=== PATIENT | male | born 1940 | race Caucasian/White ===

== ENCOUNTER → 2019-01-23 09:29 | Outpatient (CLI) | payer SELFPAY ==
[2019-01-23 10:02] LABS: International Normalized Ratio 2.5; Prothrombin Time (Protime)PT. 26.8 SECONDS (11.7-14.9)
== END ==
PROVIDERS: Family Provider Family Medicine; PCP Family Medicine; Referring Provider Student in an Organized Health Care Education/Training Program; Visit Provider Student in an Organized Health Care Education/Training Program
DX: Z98.890 Other specified postprocedural states (principal); Z86.79 Personal history of other diseases of the circulatory system
CPT/HCPCS: 85610

== ENCOUNTER 2020-07-17 09:46 | Emergency (ER) | payer SELFPAY ==
[2020-07-17] VITALS (7 sets, daily range): BP systolic 115–137; BP diastolic 63–78; PULSE 70–74; RESP 17–22; TEMP 36.8–37.1; O2SAT 90–94; BMI 26.8
--- NOTE | 2020-07-17 09:54 | EKG12_ITS ---
Test Reason : LOW OX Blood Pressure : / mmHG Vent. Rate : 071 BPM Atrial Rate : 060 BPM P-R Int : 136 ms QRS Dur : 156 ms QT Int : 464 ms P-R-T Axes : 000 267 064 degrees QTc Int : 504 ms Suspect arm lead reversal, interpretation assumes no reversal Atrial-paced rhythm Right bundle branch block Cannot rule out Anterior infarct , age undetermined Abnormal ECG Confirmed by INES ONOFRE, NICK ([id number]), news editor HERB THOMPSON ([id number]) on 07/22/2020 8:44:47 AM Referred By: VISHAL Confirmed By:NICK CHACON MD
--- NOTE | 2020-07-17 09:56 | ED.DCSUM_ITS ---
History of Present Illness Informant: Patient, EMS Onset: Weeks - 1 week Activity at onset: Exertion, Light Activity, Rest Timing: Continuous Quality: Dyspnea on exertion Current Severity: Severe Maximum Severity: Severe Worsened by: Coughing, Exertion Relieved by: Oxygen, Rest Associated Symptoms: Cough, Green sputum. Negative for: Bloody Sputum, Chills, Clear sputum, Ear pain, Fever, Post-nasal drainage, Rhinorrhea, Sore throat, Sweats, White sputum, Yellow sputum Chest Pain: None Narrative: 80-year-old male history of COPD and CHF currently on oxygen at home presents to the emergency department with worsening shortness of breath over the last week. He was actually sent in today from his pulmonology appointment for being hypoxic around 85% on his normal 2 L of oxygen. He states that he has been increasing his oxygen at home up to 3 L but is still feeling short of breath. He has a productive cough with green and yellow sputum with dyspnea on exertion and wheezing. No fevers or hemoptysis. No chest pain. No leg pain or swelling. No nausea vomiting lightheadedness or diaphoresis. No sick contacts. He is currently on Coumadin. He does not remember when his last INR was checked. PE Risk Factors: Negative for: Cancer, OCP + Smoking + > 35, Recent immobilization, Recent surgery, Recent travel Prior similar symptoms: Yes Recent Illness/Hospitalization: No <Warren Ram - Last Filed: 07/17/20 13:14> <Zurdo Reid - Last Filed: 07/17/20 14:11> Chief Complaint: Shortness of Breath Past Medical History Prior records reviewed: Yes Past Medical History: - - COPD and CHF Smoking Status: Former smoker Alcohol: None Drugs: None <Warren Ram - Last Filed: 07/17/20 13:14> <Zurdo Reid - Last Filed: 07/17/20 14:11> - Allergies and Home Meds Allergies/Adverse Reactions: Allergies amiodarone Allergy (Verified 07/17/20 09:48) PT UNSURE OF REACTION metoprolol Allergy (Verified 07/17/20 09:48) PT UNSURE OF REACTION milk Allergy (Verified 07/17/20 09:48) PT UNSURE OF REACTION sotalol Allergy (Verified 07/17/20 09:48) PT UNSURE OF REACTION Sulfa (Sulfonamide Antibiotics) Allergy (Verified 07/17/20 09:48) PT UNSURE OF REACTION Primary Care Physician: Daniel Chester DO [Primary Care Provider] - Review of Systems All systems negative except as indicated General: Denies: Chills, Fever, Sweats Eyes: Denies: Visual changes - bilaterally, Diplopia ENT: Denies: Rhinorrhea, Sore throat Cardiovascular: Denies: Chest pain, Palpitations, Heart racing Respiratory: Reports: Dyspnea, Cough, Sputum, Dyspnea on exertion. Denies: Orthopnea, Paroxysmal nocturnal dyspnea Gastrointestinal: Denies: Abdominal pain, Nausea, Vomiting, Diarrhea, Melena, Hematochezia Genitourinary: Denies: Dysuria, Hematuria, Frequency Musculoskeletal: Denies: Back pain, Extremity Pain Skin: Denies: Rash, Wounds Neurological: Denies: Headache, Weakness, Numbness <Warren Ram - Last Filed: 07/17/20 13:14> Physical Exam Vital Signs/Narrative: Vital Signs Temp Pulse Resp BP Pulse Ox 07/17/20 09:54 98.2 F 74 22 H 127/63 H 93 07/17/20 09:49 98.2 F 74 22 H 127/63 H 93 Inital Vital Signs reviewed: Yes General: Well nourished, Well developed, No Acute Distress Head: Normocephalic, Atraumatic Eyes: Perrl, EOMI ENT: Moist mucous membranes, No rhinorrhea Neck: Supple, Nontender Cardiovascular: Regular rate, Regular rhythm, No murmurs Respiratory: Chest nontender, Wheezing, Diminished, Decreased Air Movement, - - Under distress with having difficulty speaking in full sentences as well as use of accessory muscles for breathing Abdomen: Soft, Nontender, Nondistended, Normal bowel sounds Back: Nontender, Normal Inspection Extremities: Nontender, No edema. Negative for: Tenderness, Edema, Calf Tenderness Skin: Normal color, No rash Neurological: Alert, Oriented x3, Cranial nerves II-XII grossly intact, Normal Strength, Normal Sensation Psychological: Normal affect, Normal Mood <Warren Ram - Last Filed: 07/17/20 13:14> Vital Signs/Narrative: Vital Signs Temp Pulse Resp BP Pulse Ox 07/17/20 13:00 98.7 F 70 17 115/68 90 07/17/20 12:10 70 20 H 137/78 H 92 07/17/20 12:00 98.6 F 70 20 H 137/78 H 92 07/17/20 11:54 98.6 F 70 18 137/78 H 92 07/17/20 11:00 70 17 94 <Zurdo Reid - Last Filed: 07/17/20 14:11> Diagnostic/Tx/Re-eval Chest X-Ray - ED: 1 View, Read by ED Physician, Read by Radiologist, No Acute Disease - Rhythm Strip Rhythm Strip: Sinus Rhythm Rate: 90 Ectopy: None - EKG Initial EKG Interpretation: No Acute Injury Pattern, Paced Prior: Unchanged Treatment - Dyspnea: Oxygen, Albuterol, Atrovent, Steroid Repeat Evaluation: No change With Ambulation: Desaturation - Medical Decision Making Patient presents hypoxic on his normal 2 L of home oxygen we increase him to 5 L to 94%. He was given a dose of IV Solu-Medrol and aerosols. His EKG showed a paced rhythm unchanged from his previous no acute changes are noted. Patient's laboratory work-up was unremarkable. His blood gas was essentially unremarkable as well. He does not appear to be retaining CO2. His chest x-ray is unremarkable. Repeat exam the patient is still requiring 5 L which is increased from his baseline of 2 L. At this time we feel this is due to a COPD exacerbation. Discussed with patient he requires admission. He requested that we transfer him to [facility] where his children's ministries director follows. I spoke with the transfer line who agreed to admit. Accepting hospitalist was Dr. Nation <Warren Ram - Last Filed: 07/17/20 13:14> - Medical Decision Making I supervised the STEPHANY and have performed my own pertinent history and physical. Results and treatment plan were discussed. HPI: Patient reports that he has increased shortness of breath. Does have a productive cough. He denies any fever or chills. No chest pain. He sent by his children's ministries director office. They report that he stopped his Lasix and is drinking something that he says is a diuretic. PE: Vitals: Stable. Afebrile. General: Well-nourished and well-developed. Head: Normocephalic atraumatic. Neck: Supple, no lymphadenopathy. No JVD. Nontender. Cardiovascular: Regular rate and rhythm. No murmurs. Respiratory: Moderate respiratory distress. Mild wheezing bilaterally.. Abdominal: Soft, nontender, nondistended, normal bowel sounds. No guarding, rebound, or peritoneal signs. Back: Nontender. Extremities: Nontender, no edema. Skin: Normal color, no rash. Neurologic: Alert and oriented ?3. Cranial nerves II through XII are intact. Normal strength and sensation. Psych: Normal affect. Emergency Department course: Patient was given aerosols. He is still requiring more oxygen and needs to be admitted. He would like to be transferred to [facility] where his children's ministries director can follow him. Treatment Plan: Patient will be transferred in improved condition. This note was generated with [employer] dictation software. It may contain incorrect words, spelling, and punctuation that were not noted in review of the chart prior to signing. <Zurdo Reid - Last Filed: 07/17/20 14:11> ED Disposition <Warren Ram - Last Filed: 07/17/20 13:14> <Zurdo Reid - Last Filed: 07/17/20 14:11> - Plan for ED Patient: Disposition: Acute Care Hospital - Other Diagnosis: COPD with hypoxia, History of CHF (congestive heart failure) Referrals: Daniel Chester DO [Primary Care Provider] -
[2020-07-17] MEDS: MethylPREDNISolone 125 MG/2 ML Vial IV (10:11)
[2020-07-17] MEDS: Albuterol 2.5 MG/3 ML VIAL.NEB. INHALATION ×3 (10:15→10:45)
[2020-07-17] MEDS: Ipratropium/Albuterol Sulfate 3 ML AMPUL.NEB INHALATION (10:15)
--- NOTE | 2020-07-17 10:20 | RAD_ITS ---
STUDY: X-RAY CHEST REASON FOR EXAM: Male, 80 years old. Sob, low oxygen level, history of COPD TECHNIQUE: Single AP portable view of the chest. COMPARISON: None. FINDINGS: EKG electrodes are seen. Hyperinflation. Decreased bronchovascular markings in the upper lobes suggestive of emphysematous change with bullous formation. Increased markings in the lower lobes with areas of confluence in the right lower lobe suggests lobar scarring. Blunting of both cost phrenic angles. Prior aortic valve replacement. A left-sided dual-chamber pacemaker is seen. Normal mediastinum and hermann. Normal visualized pulmonary arteries. There is atherosclerotic calcification of the aortic arch with tortuosity. Normal visualized thoracic spine. Normal visualized ribs, clavicles, and shoulders. There is no demonstrated abnormality of the visualized soft tissue structures of the upper abdomen. RAD/Chest 1 View (Portable) IMPRESSION: Hyperinflation and changes compatible with emphysema. Findings suggestive of scarring at the lung bases with blunting of both costophrenic angles. Electronically Signed: Leo Da Silva, at 10:42 EDT , Service support ,
[2020-07-17 10:28] LABS: Absolute Lymphocyte Count 0.49 X10^3/uL (0.83-4.51); Absolute Neutrophil Count 1.7 X10^3/uL (2.0-7.7); Basophil# 0.01 X10^3/uL; Basophil% 0.4 % (0-1); Eosinophil# 0.02 X10^3/uL; Eosinophils% 0.8 % (0-5); Hematocrit 38.3 % (40-54); Hemoglobin 12.7 g/dL (13.0-16.5); Lymphocyte # 0.49 X10^3/ul (4.0); Lymphocyte % 19.6 % (19-41); Mean Corp Hgb Conc 33.2 g/dL (32-36); Mean Corpuscular Volume 96.5 fL (80-94); Mean Platelet Vol. 10.6 fl (6.2-12.0); Monocyte# 0.27 X10^3/uL; Monocyte% 10.8 % (0-10); NRBC Flagged by Analyzer 0 % (0-5); Neutrophil # 1.69 X10^3/uL (2.7-7.7); Neutrophil % 67.6 % (47-70); POSITIVE DIFFERENTIAL YES; Platelet Count 112 K/mm3 (150-450); RBC Distribution Width CV 13.8 % (11.6-14.6); RBC Distribution Width SD 49.1 fl (35.1-43.9); Red Blood Count 3.97 M/mm3 (4.6-6.2); White Blood Count 2.5 K/mm3 (4.4-11.0)
[2020-07-17 10:29] LABS: Differential Indicated SCAN CRITERIA MET
[2020-07-17 10:45] LABS: Anion Gap 5 (5-15); BUN 39 mg/dL (7-18); BUN/Creat Ratio 34.2 RATIO (10-20); Calcium,Total 8.6 mg/dL (8.5-10.1); Chloride 103 mmol/L (98-107); Creatinine, Serum 1.14 mg/dL (0.70-1.30); EST Glomerular Filtration Rate 65 mL/min (>60); Est Glom Filt Rate - Afr Amer 79 mL/min (>60); Estimated Creatinine Clearance 53.21 ml/min; Glucose 98 mg/dL (74-106); Sodium Level 134 mmol/L (136-145)
[2020-07-17 10:46] LABS: BNP,B-Type NATRIURETIC PEPTIDE 511.1 pg/mL (0-100); International Normalized Ratio 2.9; Prothrombin Time (Protime)PT. 30.1 SECONDS (11.7-14.9)
[2020-07-17 11:08] LABS: Differential Comment D
[2020-07-17 11:10] LABS: Base Excess -3 mmol/L (-2 to +2); Bicarbonate 22.4 mmol/L (22-26); Blood Gas Specimen Type ART; PO2 79 mmHG (75-100); SITE L Radial; SO2 96 % (95-99); Total Carbon Dioxide 24 mmol/L; pCO2 36.9 mmHg (35-45); pH 7.39 (7.35-7.45)
[2020-07-20 14:08] LABS: Pathologist Review Reviewed
== END 2020-07-17 14:07 | disposition short-term general hospital (02) ==
PROVIDERS: Emergency Provider Physician Assistant Medical; PCP Student in an Organized Health Care Education/Training Program
DX: J44.9 Chronic obstructive pulmonary disease, unspecified (principal); R09.02 Hypoxemia; I50.9 Heart failure, unspecified; Z99.81 Dependence on supplemental oxygen; Z79.01 Long term (current) use of anticoagulants; Z87.891 Personal history of nicotine dependence
CPT/HCPCS: 36600; 71045; 80048; 82803; 83880; 84484; 85025; 85610; 93005; 94640; 96374; 99285; A4216

== ENCOUNTER 2020-07-31 10:12 | Inpatient (IN) | payer MEDICARE, SELFPAY ==
[2020-07-17 09:49] VITALS: BMI 26.8
[2020-07-31] VITALS (16 sets, daily range): BP systolic 84–114; BP diastolic 42–68; PULSE 62–75; RESP 11–24; TEMP 36.6–37.2; O2SAT 91–97; BMI 25.4; BMI 24.9; BMI 25.0
--- NOTE | 2020-07-31 10:20 | NURSING ---
[id number] STROKE ALERT CALLED
--- NOTE | 2020-07-31 10:21 | CT_ITS ---
STUDY: CT BRAIN WITHOUT CONTRAST REASON FOR EXAM: Male, 80 years old. stroke. RADIATION DOSAGE (If Supplied By Facility): CTDIvol = ( 44.99 ) mGy, DLP = ( 846.73 ) mGycm TECHNIQUE: Transaxial CT imaging of the brain was performed without administration of intravenous contrast material. Individualized dose optimization techniques were used for this CT. COMPARISON: No relevant priors. FINDINGS: Normal soft tissue structures. Normal calvarium. There is mild cerebral atrophy with widening of the extra-axial spaces and ventricular dilatation. There are areas of decreased attenuation within the white matter tracts of the supratentorial brain, consistent with microvascular disease changes. Normal basal ganglia and thalami. Normal brainstem. Normal cerebellum. There is no intracranial hemorrhage. There are no findings of an acute ischemic infarction. Normal visualized paranasal sinuses. CT/Brain/Head without Contrast IMPRESSION: No acute intracranial hemorrhage. N.B. : The above information has been verbally conveyed by Radha Jacobs to Edmar Reid MD, on 07/31/2020 10:34:07 (ET). Electronically Signed: Radha Jacobs, at 10:34 EDT Tel , Service support ,
--- NOTE | 2020-07-31 10:21 | EKG12_ITS ---
Test Reason : STROKE ALERT Blood Pressure : / mmHG Vent. Rate : 072 BPM Atrial Rate : 072 BPM P-R Int : 134 ms QRS Dur : 160 ms QT Int : 464 ms P-R-T Axes : 000 257 057 degrees QTc Int : 508 ms Suspect arm lead reversal, interpretation assumes no reversal Atrial-paced rhythm Right bundle branch block Possible Anterolateral infarct , age undetermined Abnormal ECG Confirmed by NITIN ONOFRE, LAWRENCE ([id number]), proposal editor HERB THOMPSON ([id number]) on 08/05/2020 11:07:17 AM Referred By: JEREMIAH Confirmed By:AVEL TAVERAS MD
--- NOTE | 2020-07-31 10:22 | CT_ITS ---
STUDY: CTA HEAD AND NECK WITH CONTRAST REASON FOR EXAM: Male, 80 years old. STROKE RADIATION DOSAGE (If Supplied By Facility): CTDIvol = ( 37.87 ) mGy, DLP = ( 724.26 ) mGycm TECHNIQUE: CT angiography was performed with a multi-detector CT scanner. Data acquisition was obtained from the skull base through the vertex following intravenous administration of IV 100mL [id number]-[id number]. MIP images were reconstructed from the axial data set. Post-processing of the angiographic images was performed, with multiplanar reformation and 3D reconstruction. Individualized dose optimization techniques were used for this CT. COMPARISON: No relevant priors. FINDINGS: Normal bilateral petrous carotid arteries. Normal right cavernous carotid artery with a normal supraclinoid bifurcation. Normal left cavernous carotid artery with a normal supraclinoid bifurcation. Normal right A1 segments of the anterior cerebral artery. Normal left A1 segments of the anterior cerebral artery. Normal intact anterior communicating artery (ACOM). Normal bilateral A2 segments of the anterior cerebral arteries. Normal right M1 and M2 segments of the middle cerebral arteries, with a normal M1 bifurcation. Normal left M1 and M2 segments of the middle cerebral arteries, with a normal M1 bifurcation. Normal right posterior communicating artery (PCOM). Normal left posterior communicating artery (PCOM). Normal bilateral vertebral arteries. Normal basilar artery with a normal basilar bifurcation. The visualized bilateral superior cerebellar (SCA) arteries are normal. Normal bilateral P1, P2 and visualized P3 segments of the posterior cerebral arteries. There is no demonstrated aneurysm of the [place] of [place]. There is no demonstrated abnormality of the visualized brain. AORTIC ARCH: Normal visualized aortic arch. Normal origins of the brachiocephalic, left common carotid, and left subclavian arteries. RIGHT CAROTID ARTERIES: Normal right common carotid artery (CCA). There is mild atherosclerotic plaque formation with minimal narrowing of the right carotid bulb. Normal origin of the right internal carotid (ICA) artery without a hemodynamically significant stenosis. Normal visualized cervical portion of the right internal carotid artery. Normal origin of the right external carotid artery (ECA). LEFT CAROTID ARTERIES: Normal left common carotid artery (CCA). There is mild atherosclerotic plaque formation with minimal narrowing of the left carotid bulb. Normal origin of the left internal carotid (ICA) artery without a hemodynamically significant stenosis. Normal visualized cervical portion of the left internal carotid artery. Normal origin of the left external carotid artery (ECA). VERTEBRAL ARTERIES: Normal bilateral vertebral arteries. CT/CTA Head AND Neck W/ Contrast IMPRESSION: No significant stenosis of the carotid or vertebral arteries. Electronically Signed: Radha Jacobs, at 11:04 EDT Tel , Service support ,
[2020-07-31 10:34] LABS: Absolute Lymphocyte Count 0.77 X10^3/uL (0.83-4.51); Absolute Neutrophil Count 14.7 X10^3/uL (2.0-7.7); Basophil# 0.03 X10^3/uL; Basophil% 0.2 % (0-1); Eosinophil# 0.09 X10^3/uL; Eosinophils% 0.5 % (0-5); Hemoglobin 13.8 g/dL (13.0-16.5); Lymphocyte # 0.77 X10^3/ul (4.0); Lymphocyte % 4.3 % (19-41); Mean Corp Hgb Conc 32.9 g/dL (32-36); Mean Corpuscular Hgb 31.6 pg (27.0-32.0); Mean Corpuscular Volume 96.1 fL (80-94); Mean Platelet Vol. 10.5 fl (6.2-12.0); Monocyte# 1.39 X10^3/uL; Monocyte% 7.8 % (0-10); NRBC Flagged by Analyzer 0 % (0-5); Neutrophil # 14.74 X10^3/uL (2.7-7.7); Neutrophil % 82.6 % (47-70); Platelet Count 158 K/mm3 (150-450); RBC Distribution Width CV 14.1 % (11.6-14.6); RBC Distribution Width SD 49.7 fl (35.1-43.9); Red Blood Count 4.37 M/mm3 (4.6-6.2); White Blood Count 17.8 K/mm3 (4.4-11.0)
--- NOTE | 2020-07-31 10:36 | CM.ED ---
Social Work Responding to stroke alert. Patient spouse, Tiffani present. Active support and listening provided. This social work assistant able to assist with providing Tiffani with glass of water and crackers. Tiffani reports to be understanding current process and plan of care for patient currently. Will continue to follow as needed. Adriana Brannon MSW, SANJEEV-S
[2020-07-31 10:43] LABS: Partial Thromboplast Time 26.4 Seconds (24.1-36.2)
[2020-07-31 10:51] LABS: International Normalized Ratio 1.1; Prothrombin Time (Protime)PT. 13.7 SECONDS (11.7-14.9)
[2020-07-31 10:58] LABS: Anion Gap 6 (5-15); BUN 82 mg/dL (7-18); BUN/Creat Ratio 56.2 RATIO (10-20); Calcium,Total 9.1 mg/dL (8.5-10.1); Chloride 106 mmol/L (98-107); Creatinine, Serum 1.46 mg/dL (0.70-1.30); EST Glomerular Filtration Rate 49 mL/min (>60); Est Glom Filt Rate - Afr Amer 59 mL/min (>60); Estimated Creatinine Clearance 42.82 ml/min; Glucose 79 mg/dL (74-106); Potassium 4.4 mmol/L (3.5-5.1); Sodium Level 138 mmol/L (136-145)
--- NOTE | 2020-07-31 11:00 | RAD_ITS ---
STUDY: X-RAY CHEST REASON FOR EXAM: Male, 80 years old. stroke -- alt loc TECHNIQUE: Single AP portable view of the chest. COMPARISON: None. FINDINGS: Pacemaker is seen on the left side There is hyperinflation of the lungs consistent with chronic obstructive lung disease (COPD). There is emphysema in the upper lobes. There is compressive atelectasis in the lung bases. There is no demonstrated pleural abnormality. Normal size heart. Normal mediastinum and hermann. Normal visualized pulmonary arteries. Normal visualized aortic arch and descending thoracic aorta. Normal visualized thoracic spine. Normal visualized ribs, clavicles, and shoulders. There is no demonstrated abnormality of the visualized soft tissue structures of the upper abdomen. RAD/Chest 1 View IMPRESSION: COPD and emphysema. There has been no significant change since the previous study. Electronically Signed: Radha Jacobs, at 11:35 EDT Tel , Service support ,
--- NOTE | 2020-07-31 11:17 | CM.ED ---
Social Work This criminal justice social worker checking back in with patient and patient significant other. Patient/significant other voicing to both understand patient out comes and current course of action in the Emergency Room. No further questions. MICKI Allen, SANJEEV-S
--- NOTE | 2020-07-31 11:30 | HP.PCM_ITS ---
Problem List (1) Expressive aphasia Status: Acute (2) Pacemaker Status: Chronic (3) Afib Status: Chronic Qualifiers: Atrial fibrillation type: unspecified chronic Qualified Code(s): I48.20 - Chronic atrial fibrillation, unspecified (4) Essential (primary) hypertension Status: Chronic (5) COPD (chronic obstructive pulmonary disease) Status: Chronic (6) Chronic respiratory failure with hypoxia, on home O2 therapy Status: Chronic History of Present Illness Date of Admission: 07/31/20 Chief Complaint: Difficulty with expression The patient is a 80 year old M with past medical history section for paroxysmal A. fib, essential hypertension, pacemaker placement, COPD on home baseline home O2 who was brought to the emergency department with confusion. 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 A suspicion of acute CVA was entertained patient was brought to the emergency department as a result. His NIH score was 1. Consult was placed to [facility] neurology. Patient was offered TPA however he declined. Initial head CT was negative for acute ischemic bleed. Of note patient was on Coumadin which had been held in view of patient being placed on antibiotic therapy due to concerns for elevated INR. Patient INR on admission was 1.1. Patient was admitted to a monitored [facility] floor for subsequent management. Past Medical History Past Medical History (Chronic Problems): Chronic Problems Pacemaker (Chronic) Afib (Chronic) Essential (primary) hypertension (Chronic) COPD (chronic obstructive pulmonary disease) (Chronic) Chronic respiratory failure with hypoxia, on home O2 therapy (Chronic) Allergies amiodarone Allergy (Verified 07/31/20 10:16) PT UNSURE OF REACTION metoprolol Allergy (Verified 07/31/20 10:16) PT UNSURE OF REACTION milk Allergy (Verified 07/31/20 10:16) PT UNSURE OF REACTION sotalol Allergy (Verified 07/31/20 10:16) PT UNSURE OF REACTION Sulfa (Sulfonamide Antibiotics) Allergy (Verified 07/31/20 10:16) PT UNSURE OF REACTION Home Medications: Ambulatory Orders Medication Instructions Recorded Amlodipine [Norvasc] 5 mg PO DAILY 07/17/20 Aspirin [Aspirin, Baby] 81 mg PO DAILY 07/17/20 Budesonide/Formoterol Fumarate 2 puff IH BID 07/17/20 [Symbicort 160-4.5 Mcg Inhaler] Carvedilol 25 mg PO BID 07/17/20 Furosemide [Lasix] 40 mg PO DAILY 07/17/20 Ipratropium/Albuterol Respimat 2 puff INHALATION 4X/DAY 07/17/20 [Combivent Respimat Inhal [place]] Lisinopril 20 mg PO BID 07/17/20 Prednisone 5 mg PO DAILY 07/17/20 Warfarin Sodium [Coumadin] 5 mg PO SUTUTHSA 07/17/20 Warfarin [Coumadin (PBKC)] 4 mg PO MOWEFR 07/17/20 Smoking Status: Former smoker - *Family History Maternal History Items: Unknown Review of Systems Constitutional: Denies: Anorexia, Chills, Fever, Night Sweats, Weight Change HEENT: Denies: Head Aches, Sinus Drainage Cardiovascular: Denies: Chest Pain, Orthopnea, Palpitations Respiratory: Reports: Cough, Shortness of Breath, Shortness of breath upon exertion Gastrointestinal: Denies: Abdominal Pain, Hematemesis, Hematochezia, Nausea, Melena, Vomiting Genitourinary: Denies: Dysuria, Frequency, Hematuria, Urgency Musculoskeletal: Denies: Joint Pain, Joint Tenderness Skin: Denies: Rash Neurological: Reports: Change in Speech, Confusion. Denies: Focal weakness, Nu mbness Psychiatric: Denies: Homicidal Ideations, Suicidal Ideations Hematologic/ Lymphatic: Denies: Anemia VTE Information - Inpt Only VTE Present on Admission: No VTE Mechan Device Prophylaxis: None VTE Pharm Prophylaxis ordered?: Yes Patient Problems: Active and Suspected Problems Expressive aphasia (Acute) Objective: GENERAL: cooperative HEENT: Atraumatic; EYES; Anicteric, Normal Conjunctiva NECK; supple, normal thyroid, RESPIRATORY: Diminished to auscultation CARDIOVASCULAR: Regular S1 S2, GI: soft, normoactive bowel sounds, : No Renal angle tenderness; EXTREMITIES: No edema, no clubbing, MUSCULOSKELETAL: no muscle waisting NEURO: Awake; no lateralizing signs. SKIN: No Rash PSYCH; Flat affect - Physical Exam Vitals/I&O's: Vital Signs Temp Pulse Resp BP Pulse Ox 98 F 71 24 H 89/67 L 94 07/31/20 10:13 07/31/20 10:21 07/31/20 10:21 07/31/20 10:21 07/31/20 10:32 Oxygen Flow Rate (L/min) 5 Oxygen Delivery Method Nasal Cannula Weight: 85.3 kg Body Mass Index (BMI) 25.4 Finger Stick Blood Glucose 98 Laboratory Results 07/31/20 10:15: WBC 17.8 H, RBC 4.37 L, Hgb 13.8, Hct 42.0, MCV 96.1 H, MCH 31.6, MCHC 32.9, RDW Std Deviation 49.7 H, RDW Coeff of Tal 14.1, Plt Count 158, MPV 10.5, Immature Gran % (Auto) 4.600 H, Neut % (Auto) 82.6 H, Lymph % (Auto) 4.3 L, [place] % (Auto) 7.8, Eos % (Auto) 0.5, Baso % (Auto) 0.2, Absolute Neuts (auto) 14.7 H, Absolute Lymphs (auto) 0.77 L, Nucleated RBC % 0 07/31/20 10:15: PT 13.7, INR 1.1, APTT 26.4 07/31/20 10:15: Sodium 138, Potassium 4.4, Chloride 106, Carbon Dioxide 26.0, Anion Gap 6, BUN 82 H, Creatinine 1.46 H, Estim Creat Clear Calc 42.82, Est GFR (MDRD) Af Amer 59 L, Est GFR (MDRD) Non-Af 49 L, BUN/Creatinine Ratio 56.2 H, Glucose 79, Calcium 9.1, Troponin I < 0.015 Current Medications Acetaminophen (Tylenol) 650 mg PO .X1 PRN PRN Reason: Temp > 99.6 F Diphenhydramine HCl (Benadryl) 50 mg IV .X1 PRN PRN Reason: Allergic Reaction Stop: 08/02/20 10:23 Sodium Chloride () 1,000 mls @ 100 mls/hr IV .Q10H ONE Stop: 07/31/20 20:20 Sodium Chloride () 1,000 mls @ 100 mls/hr IV .Q10H STEPHIE Famotidine 20 mg/ Sodium (Chloride) 10 mls @ 300 mls/hr IV .X1 PRN PRN Reason: Allergic Reaction Stop: 08/02/20 10:23 Nicardipine/Dextrose (Cardene-Dex 20 Mg/200 Ml Soln) 20 mg in 200 mls @ 50 mls/hr IV .Q4H PRN; Protocol PRN Reason: See Instructions Labetalol HCl (Trandate) 20 mg IV X1 PRN PRN Reason: BLOOD PRESSURE Labetalol HCl (Trandate) 20 mg IV X1 PRN; Protocol PRN Reason: BLOOD PRESSURE Methylprednisolone (Solu-Medrol) 125 mg IV .X1 PRN PRN Reason: Allergic Reaction Stop: 08/02/20 10:23 Assessment/Plan All Active Problems Expressive aphasia (Acute) Patient is an 80-year-old gentleman with history of paroxysmal A. fib presenting with expressive aphasia 1. Suspected CVA/TIA -Patient is an 80-year-old gentleman with significant risk factors for stroke including paroxysmal A. fib, hypertension who presents with spells of aphasia. Head CT obtained on admission was negative for acute CVA. Admitted to monitored bed for continuous telemetry, every 4 neurochecks and subsequent evaluation included a 2D echo. Had CTA obtained on admission did not show any evidence of large vessel occlusion. Patient is already on antiplatelet therapy did continue and added statin therapy 2. Paroxysmal A. fib ?With subtherapeutic INR. Patient was on Coumadin which was apparently held following patient being placed on antibiotics. Coumadin resumed with daily monitoring of INR. 3. Chronic diarrhea . Patient was apparently taking 6 tablets of Imodium on a daily basis per family. Given patient recent antibiotic use and his elevated WBC count stool for C. difficile was sent 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 Hypertension - Blood pressure controlled, home medications continued with dose adjustment as needed 6. Chronic hypoxic respiratory failure ?Secondary to COPD patient is on baseline home O2. Also did continue patient home regimen 7. Renal failure ?Acute versus chronic ?Patient baseline unknown on IV fluids with subsequent monitoring of electrolyte 8. DVT prophylaxis ?Lovenox pending normalization of INR to within a therapeutic range Advance planning; did discuss with the patient and family regarding advanced directives as well as CODE STATUS. Did explain the various scenarios involved ( FULL CODE, DNR CCA, DNR CCA with no intubation, and DNR CC and what each meant) patient full code with CPR and intubation if warranted. Order was placed. Time spent on discussion 18 minutes. OBSV E&M: [id number] Initial observation care L3 Procedures: [id number] Advncd Care Plan 30 Min
--- NOTE | 2020-07-31 11:36 | NURSING ---
PCU STROKE KITTOE
[2020-07-31] MEDS: 0.9% Normal Saline 1,000 ML 100 ML IV (11:51)
--- NOTE | 2020-07-31 12:34 | ED.VISSUMM ---
- ER Visit Summary Date of Service: 07/31/20 Chief Complaint: Confusion History of Present Illness: The patient is a [address] Chester. He has a history of chronic respiratory failure and on 5 L of home O2 at baseline. 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 He had abrupt onset of an expressive aphasia at 830 this morning. Patient denies any numbness or weakness. He denies any vertigo. He denies any change in his vision. Patient is typically on Coumadin. However, this was held a week ago as he was placed on an antibiotic and steroids for a COPD exacerbation. Patient reports that he had a nosebleed 2 days ago that was not bad. Review of systems: General: No fever, chills, cold sweats. Cardiovascular: No chest pain, palpitations. Respiratory: No cough, shortness of breath, dyspnea on exertion. Gastrointestinal: No abdominal pain, nausea, vomiting, diarrhea, melena, or hematochezia. Genitourinary: No dysuria, frequency, hematuria. Skin: No rash. Neuro: No headache, numbness, weakness. Physical Examination: Vitals: Stable. Afebrile. General: Well-nourished and well-developed. Head: Normocephalic atraumatic. Neck: Supple, no lymphadenopathy. No JVD. Nontender. Cardiovascular: Regular rate and rhythm. No murmurs. Respiratory: No respiratory distress. Rhonchi at the bases bilaterally. Abdominal: Soft, nontender, nondistended, normal bowel sounds. No guarding, rebound, or peritoneal signs. Back: Nontender. Extremities: Nontender, no edema. Skin: Normal color, no rash. Neurologic: Alert and oriented ?3. Cranial nerves II through XII are intact. Normal strength and sensation. Obvious expressive aphasia with loss of fluency. Psych: Normal affect. Test Results: EKG is AV paced at 72. Troponin is negative. INR is 1.1. PTT is 26.4. Chem-7 shows a BUN of 82 and creatinine 1.46. CBC shows a white count of 17.8 with 83 segs neutrophils and 4 lymphocytes. He has immature granulocytes of 4.6%. Emergency Department Course and Treatment: Patient NIH scale is 0. However, he does clearly have an expressive aphasia. He was seen by the neurologist from [facility] states that he is not a TPA candidate. However, the family wants TPA that this is a possibility and may help with his expressive aphasia. This was discussed with the patient, his , and his daughter. Ultimately he is described himself as a minimalist and does not want TPA. Treatment Plan: Patient was discussed with Dr. you. He will be admitted to the hospital for further evaluation and treatment. Disposition: Admitted in improved condition. Impression: 1. Expressive aphasia. 2. COPD. 3. Chronic respiratory failure. 4. Leukocytosis, uncertain cause. 5. Critical care time 33 minutes. This note was generated with [employer] dictation software. It may contain incorrect words, spelling, and punctuation that were not noted in review of the chart prior to signing ED Disposition - Plan for ED Patient: Disposition: Acute Care Hospital [facility]
--- NOTE | 2020-07-31 12:59 | ECHOD_ITS ---
Reason For Study: TIA/CVA Procedure This was a 2D Doppler, Color Flow transthoracic echocardiogram. Contrast injection was performed. Exam performed portable in patient room. Left Ventricle Normal LV size. The estimated ejection fraction is 55 %. Diastolic function is indeterminate. No regional wall motion abnormalities noted. Right Ventricle Moderately dilated right ventricle. ICD or pacer leads identified within the right ventricle. Moderate global right ventricular systolic dysfunction. Atria The left atrium is severely enlarged. The right atrium is severely enlarged. ICD or pacer leads identified within the right atrium. Patent foramen ovale. No doppler evidence for ASD. Mitral Valve There is no mitral valve stenosis. No mitral valve insufficiency. Tricuspid Valve There is no tricuspid stenosis. Moderate (2+) tricuspid valve insufficiency. Pulmonary artery systolic pressure is 70-75 mmHg. Aortic Valve There is no aortic stenosis. No aortic valve insufficiency. Stable appearing bioprosthetic aortic valve apparatus. Pulmonic Valve There is no pulmonic valvular stenosis. Trivial pulmonic valve insufficiency. Great Vessels Normal aortic root. Pericardium/Pleural No pericardial effusion. Medication Performed a rapid injection of agitated mix of 9 cc saline and 1cc air to assess for atrial septal defect. MMode/2D Measurements & Calculations LVIDd: 3.7 cm IVSd: 1.6 cm LVOT diam: 2.1 cm LVIDs: 2.4 cm LVPWd: 1.5 cm RVDd: 5.2 cm FS: 35.7 % LVOT area: 3.4 cm2 Ao root diam: 3.3 cm LAV(MOD-bp): 120.5 ml LVAd ap4: 24.4 cm2 LA dimension: 5.0 cm LAV(MOD-bp) Indexed: 58.1 ml/m2 EDV(MOD-sp4): 68.9 ml LAV(MOD-sp2): 109.1 ml EDV(sp4-el): 68.1 ml LAV(MOD-sp4): 114.6 ml LVAs ap4: 13.2 cm2 ESV(MOD-sp4): 25.4 ml ESV(sp4-el): 25.4 ml EF(MOD-sp4): 63.2 % EF(sp4-el): 62.7 % SV(MOD-sp4): 43.6 ml SV(sp4-el): 42.7 ml LA A4 area: 30.7 cm2 RA A4 area: 24.0 cm2 Time Measurements MV dec time: 0.16 sec Doppler Measurements & Calculations MV E max josé miguel: 95.1 cm/sec Lat Peak E' José Miguel: 12.7 cm/sec Med Peak E' José Miguel: 7.0 cm/sec MV A max josé miguel: 23.8 cm/sec E/E' lat: 7.5 E/E' med: 13.5 MV E/A: 4.0 MV V2 max: 102.2 cm/sec MV P1/2t max josé miguel: 103.1 cm/sec Ao V2 max: 213.6 cm/sec MV max P.2 mmHg MV P1/2t: 71.5 msec Ao max P.2 mmHg MV V2 mean: 48.4 cm/sec MV dec slope: 422.4 cm/sec2 Ao V2 mean: 142.7 cm/sec MV mean P.2 mmHg MVA(P1/2t): 3.1 cm2 Ao mean P.6 mmHg MV V2 VTI: 24.5 cm Ao V2 VTI: 45.3 cm MVA(VTI): 3.5 cm2 YENI(I,D): 1.9 cm2 YENI(V,D): 2.1 cm2 LV V1 max: 132.9 cm/sec SV(LVOT): 84.7 ml PA V2 max: 93.1 cm/sec LV V1 max P.1 mmHg LV V1 mean P.5 mmHg LV V1 mean: 85.5 cm/sec LV V1 VTI: 25.2 cm PI end-d josé miguel: 150.9 cm/sec TR max josé miguel: 393.4 cm/sec TR max P.9 mmHg Interpretation Summary The estimated ejection fraction is 55 %. Diastolic function is indeterminate. Moderately dilated right ventricle. Moderate global right ventricular systolic dysfunction. The left atrium is severely enlarged. The right atrium is severely enlarged. Moderate (2+) tricuspid valve insufficiency. Pulmonary artery systolic pressure is 70-75 mmHg. Ordering Physician: Alfonso Kang Referring Physician: Daniel Chester Performed By: Braydon Robles RCS
[2020-07-31 14:09] LABS: International Normalized Ratio 1.2; Prothrombin Time (Protime)PT. 14.4 SECONDS (11.7-14.9)
[2020-07-31] MEDS: Albuterol 2.5 MG/3 ML VIAL.NEB. INHALATION ×2 (15:33→21:24)
--- NOTE | 2020-07-31 16:24 | NURSING ---
RN CM Assessment Introduced role of RN CM to patient. Patient is alert, oriented and able to participate in RN CM Assessment. Care providers, pharmacy, and demographics verified. Admit Dx: Suspected CVA Barriers/Issues: Patient only has Mcr A, does not have prescription coverage. Is on the financial sales manager program at [facility], states makes too much to qualify for SATISH. PCP: Daniel Chester Specialists: Hospitalist at [facility], Cardio- [facility], [facility]- Dr Omalley Preferred Pharmacy: [facility] Insurance: Mcr A Rx Benefit: No LNOK: Tiffani Aponte LW/HPOA: None, declines offered information or completion of services on this admission. Informed that he can complete as an outpatient with drug abuse social worker. Living Arrangements: Lives with in a Condo, no steps to enter home. No stairs in home. ADL?s: Independent with ambulation and ADLs Transportation: Both patient and drive. will transport upon DC DME: Home O2 5L continuous-[place], portable O2 tanks-full, Shower chair, Nebulizer HHC: None SNF: None Goal: Would like to go home, has been walking around in room and states does not think will need SNF/rehab. Aware RNCM will continue to follow and available for any emerging needs. SNF list provided. DC PLAN: JOSE MULLEN f/u PT/OT notes. Anticipate Home with JOSE Haddad
[2020-07-31] MEDS: Enoxaparin 40 MG/0.4 ML Syringe SC (16:45)
[2020-07-31] MEDS: 0.9% Normal Saline 1,000 ML 75 ML IV (16:46)
[2020-07-31] MEDS: 0.9% Saline Lock 10 ML Syringe IV (16:46)
--- NOTE | 2020-07-31 18:57 | NURSING ---
1855; patient up from bed, ambulating and up to chair. After initial ambulation, femoral cath site assessed and no s/s of bleeding noted
[2020-07-31] MEDS: Atorvastatin Calcium 40 MG Tablet PO (20:38)
[2020-08-01] VITALS (12 sets, daily range): BP systolic 94–116; BP diastolic 46–62; PULSE 69–80; RESP 16–22; TEMP 36.6–37.1; O2SAT 5–97; BMI 24.9
[2020-08-01] MEDS: 0.9% Normal Saline 1,000 ML 75 ML IV (04:56)
[2020-08-01 06:35] LABS: Absolute Lymphocyte Count 0.47 X10^3/uL (0.83-4.51); Basophil# 0.01 X10^3/uL; Basophil% 0.1 % (0-1); Eosinophil# 0.06 X10^3/uL; Eosinophils% 0.5 % (0-5); Hematocrit 37.3 % (40-54); Hemoglobin 12.1 g/dL (13.0-16.5); Lymphocyte # 0.47 X10^3/ul (4.0); Mean Corp Hgb Conc 32.4 g/dL (32-36); Mean Corpuscular Hgb 31.8 pg (27.0-32.0); Mean Corpuscular Volume 98.2 fL (80-94); Mean Platelet Vol. 10.5 fl (6.2-12.0); Monocyte# 0.98 X10^3/uL; Monocyte% 8.3 % (0-10); NRBC Flagged by Analyzer 0 % (0-5); Neutrophil % 85.2 % (47-70); POSITIVE DIFFERENTIAL YES; Platelet Count 100 K/mm3 (150-450); RBC Distribution Width CV 14.4 % (11.6-14.6); RBC Distribution Width SD 51.7 fl (35.1-43.9); White Blood Count 11.7 K/mm3 (4.4-11.0)
[2020-08-01 06:40] LABS: Differential Indicated SCAN CRITERIA MET
[2020-08-01 06:41] LABS: International Normalized Ratio 1.3; Prothrombin Time (Protime)PT. 15.5 SECONDS (11.7-14.9)
[2020-08-01 07:01] LABS: Anion Gap 5 (5-15); BUN 52 mg/dL (7-18); BUN/Creat Ratio 54.1 RATIO (10-20); Calcium,Total 7.8 mg/dL (8.5-10.1); Chloride 111 mmol/L (98-107); Cholesterol 201 mg/dL (200); Creatinine, Serum 0.96 mg/dL (0.70-1.30); EST Glomerular Filtration Rate 80 mL/min (>60); Est Glom Filt Rate - Afr Amer 96 mL/min (>60); Estimated Creatinine Clearance 65.12 ml/min; Glucose 88 mg/dL (74-106); High Density Lipoprotein 48 mg/dL; Magnesium 2.2 mg/dL (1.6-2.6); Potassium 4.4 mmol/L (3.5-5.1); Sodium Level 140 mmol/L (136-145); Triglycerides 81 mg/dL; Very Low Density Lipoprotein 16 mg/dL (5-40)
[2020-08-01] MEDS: Albuterol 2.5 MG/3 ML VIAL.NEB. INHALATION ×2 (07:40→13:10)
[2020-08-01] MEDS: Enoxaparin 40 MG/0.4 ML Syringe SC (08:40)
[2020-08-01 09:12] LABS: Differential Comment SCANNED
--- NOTE | 2020-08-01 09:21 | CT_ITS ---
STUDY: CT BRAIN WITHOUT CONTRAST REASON FOR EXAM: Male, 80 years old. EXPRESSIVE APHASIA, SUSPECTED STROKE 07/31, HX-A FIB ON COUMADIN -- REPEAT SCAN D/T MOTION RADIATION DOSAGE (If Supplied By Facility): CTDIvol = ( 44.99 ) mGy, DLP = ( 1592.22 ) mGycm TECHNIQUE: Transaxial CT imaging of the brain was performed without administration of intravenous contrast material. Coronal and sagittal reconstructions were performed. Individualized dose optimization techniques were used for this CT. COMPARISON: CT head without contrast 07/31/2020. FINDINGS: Normal soft tissue structures. Normal calvarium. Normal size ventricles and extra-axial spaces for the patient''s age. Hypodensities in the white matter of both cerebral hemispheres are chronic white matter ischemic changes. They are unchanged. Normal basal ganglia and thalami. Normal brainstem. Normal cerebellum. There is no intracranial hemorrhage. There are no findings of an acute ischemic infarction. Normal visualized paranasal sinuses. CT/Brain/Head without Contrast IMPRESSION: 1. No CT evidence of intracranial bleeding, acute ischemic infarct or acute intracranial abnormality. 2. Chronic white matter ischemic changes in both cerebral hemispheres. 3. No interval change when compared to 07/31/2020. Electronically Signed: Bradly Quezada MD at 10:56 EDT , Service support ,
--- NOTE | 2020-08-01 09:28 | PN_ITS ---
Patient Problems: Active and Suspected Problems Expressive aphasia (Acute) Reason for Visit: Expressive aphasia Subjective: Patient is an 80-year-old gentleman with history of paroxysmal A. fib presenting with expressive aphasia Objective: GENERAL: cooperative HEENT: Atraumatic; EYES; Anicteric, Normal Conjunctiva NECK; supple, normal thyroid, RESPIRATORY: Diminished to auscultation CARDIOVASCULAR: Regular S1 S2, GI: soft, normoactive bowel sounds, : No Renal angle tenderness; EXTREMITIES: No edema, no clubbing, MUSCULOSKELETAL: no muscle waisting NEURO: Awake; no lateralizing signs. SKIN: No Rash PSYCH; Flat affect Vitals/I&O's: Vital Signs Temp Pulse Resp BP Pulse Ox 98.1 F 75 20 H 96/48 L 93 08/01/20 08:30 08/01/20 08:30 08/01/20 08:30 08/01/20 08:30 08/01/20 08:30 Oxygen Flow Rate (L/min) 5 Oxygen Delivery Method Nasal Cannula Weight: 83.461 kg Body Mass Index (BMI) 24.9 Finger Stick Blood Glucose 98 Intake and Output for Last 24 Hours 07/30/20 07/31/20 08/01/20 23:59 23:59 23:59 Intake Total 1599.58 / 1819.58 798.75 / 798.75 Balance 1599.58 / 1819.58 798.75 / 798.75 Microbiology Past 72 Hours 08/01/20 05:10 Stool C. difficile DNA Amplification - Final Laboratory Results 07/31/20 10:15: WBC 17.8 H, RBC 4.37 L, Hgb 13.8, Hct 42.0, MCV 96.1 H, MCH 31.6, MCHC 32.9, RDW Std Deviation 49.7 H, RDW Coeff of Tal 14.1, Plt Count 158, MPV 10.5, Immature Gran % (Auto) 4.600 H, Neut % (Auto) 82.6 H, Lymph % (Auto) 4.3 L, Vigo % (Auto) 7.8, Eos % (Auto) 0.5, Baso % (Auto) 0.2, Absolute Neuts (auto) 14.7 H, Absolute Lymphs (auto) 0.77 L, Nucleated RBC % 0 07/31/20 10:15: PT 13.7, INR 1.1, APTT 26.4 07/31/20 10:15: Sodium 138, Potassium 4.4, Chloride 106, Carbon Dioxide 26.0, Anion Gap 6, BUN 82 H, Creatinine 1.46 H, Estim Creat Clear Calc 42.82, Est GFR (MDRD) Af Amer 59 L, Est GFR (MDRD) Non-Af 49 L, BUN/Creatinine Ratio 56.2 H, Glucose 79, Calcium 9.1, Troponin I < 0.015 07/31/20 13:50: PT 14.4, INR 1.2 07/31/20 13:50: Troponin I < 0.015 08/01/20 05:37: WBC 11.7 H, RBC 3.80 L, Hgb 12.1 L, Hct 37.3 L, MCV 98.2 H, MCH 31.8, MCHC 32.4, RDW Std Deviation 51.7 H, RDW Coeff of Tal 14.4, Plt Count 100 L, MPV 10.5, Immature Gran % (Auto) 1.900 H, Neut % (Auto) 85.2 H, Lymph % (Auto) 4.0 L, Vigo % (Auto) 8.3, Eos % (Auto) 0.5, Baso % (Auto) 0.1, Absolute Neuts (auto) 10.0 H, Absolute Lymphs (auto) 0.47 L, Nucleated RBC % 0, Differential Comment SCANNED 08/01/20 05:37: Sodium 140, Potassium 4.4, Chloride 111 H, Carbon Dioxide 24.0, Anion Gap 5, BUN 52 H, Creatinine 0.96, Estim Creat Clear Calc 65.12, Est GFR (MDRD) Af Amer 96, Est GFR (MDRD) Non-Af 80, BUN/Creatinine Ratio 54.1 H, Glucose 88, Calcium 7.8 L, Magnesium 2.2, Triglycerides 81, Cholesterol 201 H, LDL Cholesterol 137 H, VLDL Cholesterol 16, HDL Cholesterol 48 08/01/20 05:37: PT 15.5 H, INR 1.3 Current Medications Acetaminophen (Tylenol) 650 mg PO .X1 PRN PRN Reason: Temp > 99.6 F Acetaminophen (Tylenol) 650 mg PO Q6H PRN PRN PRN Reason: Pain Score 1-10/Temp > 100.7 F Albuterol Sulfate (Ventolin Aerosols) 2.5 mg INHALATION Q6HWA.RT [facility] Last Admin: 08/01/20 07:40 Dose: 2.5 mg Documented by: Aspirin (Aspirin, Baby) 81 mg PO DAILYCM [facility] Last Admin: 08/01/20 08:43 Dose: Not Given Documented by: Atorvastatin Calcium (Lipitor) 40 mg PO QHS [facility] Last Admin: 07/31/20 20:38 Dose: 40 mg Documented by: Carvedilol (Coreg) 6.25 mg PO BID [facility] Last Admin: 08/01/20 09:12 Dose: Not Given Documented by: Diphenhydramine HCl (Benadryl) 50 mg IV .X1 PRN PRN Reason: Allergic Reaction Stop: 08/02/20 10:23 Enoxaparin Sodium (Lovenox) 40 mg SC DAILY [facility] Last Admin: 08/01/20 08:40 Dose: 40 mg Documented by: Famotidine 20 mg/ Sodium (Chloride) 10 mls @ 300 mls/hr IV .X1 PRN PRN Reason: Allergic Reaction Stop: 08/02/20 10:23 Nicardipine/Dextrose (Cardene-Dex 20 Mg/200 Ml Soln) 20 mg in 200 mls @ 50 mls/hr IV .Q4H PRN; Protocol PRN Reason: See Instructions Sodium Chloride () 1,000 mls @ 75 mls/hr IV .[id number] [facility] Stop: 08/02/20 04:58 Last Admin: 08/01/20 04:56 Dose: 75 mls/hr Documented by: Labetalol HCl (Trandate) 20 mg IV X1 PRN PRN Reason: BLOOD PRESSURE Labetalol HCl (Trandate) 20 mg IV X1 PRN; Protocol PRN Reason: BLOOD PRESSURE Labetalol HCl (Trandate) 10 - 20 mg IV Q10M PRN PRN PRN Reason: to Maintain BP Goals Lisinopril (Zestril) 5 mg PO BID [facility] Last Admin: 08/01/20 09:12 Dose: Not Given Documented by: Melatonin (Melatonin) 3 mg PO QHS PRN PRN PRN Reason: INSOMNIA Methylprednisolone (Solu-Medrol) 125 mg IV .X1 PRN PRN Reason: Allergic Reaction Stop: 08/02/20 10:23 Nitroglycerin (Nitrostat) 0.4 mg SUBLINGUAL Q5M PRN PRN Reason: CARDIAC/CHEST PAIN Ondansetron HCl (Zofran) 4 mg IV Q8H PRN PRN PRN Reason: NAUSEA/VOMITING Prednisone () 5 mg PO DAILYCM [facility] Last Admin: 08/01/20 08:44 Dose: Not Given Documented by: Senna/Docusate Sodium (Senokot-S, Loyda-Colace) 2 tablet PO BID PRN PRN PRN Reason: Constipation Sodium Chloride () 10 - 40 ml IV UD PRN PRN Reason: SALINE FLUSH Last Admin: 07/31/20 16:46 Dose: 10 ml Documented by: Sodium Chloride () 10 - 40 ml IV UD PRN PRN Reason: SALINE FLUSH Warfarin Sodium (Jantoven) 4 mg PO DAILY@1700 [facility] Last Admin: 07/31/20 16:45 Dose: 4 mg Documented by: STROKE Vital Signs/Narrative: Vital Signs Temp Pulse Resp BP Pulse Ox 08/01/20 08:30 98.1 F 75 20 H 96/48 L 93 08/01/20 07:42 70 16 94 08/01/20 07:01 70 08/01/20 06:31 97.8 F 71 22 H 94/50 L 97 Medical Necessity - Tobacco Use Smoking Status: Former smoker Tobacco Use: Non-smoker Assessment/Plan All Active Problems Expressive aphasia (Acute) Patient is an 80-year-old gentleman with history of paroxysmal A. fib presenting with expressive aphasia 1. Suspected CVA/TIA -Patient is an 80-year-old gentleman with significant risk factors for stroke including paroxysmal A. fib, hypertension who presents with spells of aphasia. Head CT obtained on admission was negative for acute CVA. Admitted to monitored bed for continuous telemetry, every 4 neurochecks and subsequent evaluation included a 2D echo. Had CTA obtained on admission did not show any evidence of large vessel occlusion. Patient is already on antiplatelet therapy did continue and added statin therapy -08/11/2020. Patient expressive is aphasia appears to have resolved. An MRI could not be performed in view of presence of pacemaker placement. Repeat head CT ordered for subsequent evaluation 2. Paroxysmal A. fib ?With subtherapeutic INR. Patient was on Coumadin which was apparently held following patient being placed on antibiotics. Coumadin resumed with daily monitoring of INR. 3. Chronic diarrhea . Patient was apparently taking 6 tablets of Imodium on a daily basis per family. Given patient recent antibiotic use and his elevated WBC count stool for C. difficile was sent -08/01/2020. Stool for C. difficile came back negative. 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 Hypertension - Blood pressure controlled, home medications continued with dose adjustment as needed 6. Chronic hypoxic respiratory failure ?Secondary to COPD patient is on baseline home O2. Also did continue patient home regimen 7. Renal failure ?Acute versus chronic ?Patient baseline unknown on IV fluids with subsequent monitoring of electrolyte 8. DVT prophylaxis ?Lovenox pending normalization of INR to within a therapeutic range OBSV E&M: [id number] Subsequent observation care L3
--- NOTE | 2020-08-01 11:34 | PCM.DC ---
- Discharge Diagnoses Current Active Problems: Current Active and Chronic Problems Expressive aphasia (Acute) Pacemaker (Chronic) Afib (Chronic) Essential (primary) hypertension (Chronic) COPD (chronic obstructive pulmonary disease) (Chronic) Chronic respiratory failure with hypoxia, on home O2 therapy (Chronic) Allergies/Adverse Reactions: Allergies amiodarone Allergy (Verified 07/31/20 10:16) PT UNSURE OF REACTION metoprolol Allergy (Verified 07/31/20 10:16) PT UNSURE OF REACTION milk Allergy (Verified 07/31/20 10:16) PT UNSURE OF REACTION sotalol Allergy (Verified 07/31/20 10:16) PT UNSURE OF REACTION Sulfa (Sulfonamide Antibiotics) Allergy (Verified 07/31/20 10:16) PT UNSURE OF REACTION Medications to take at Discharge Aspirin [Aspirin, Baby] 81 mg PO DAILY 07/17/20 Budesonide/Formoterol Fumarate [Symbicort 160-4.5 Mcg Inhaler] 2 puff IH BID 07/17/20 Ipratropium/Albuterol Respimat [Combivent Respimat Inhal [place]] 2 puff INHALATION 4X/DAY 07/17/20 Prednisone 5 mg PO DAILY 07/17/20 Warfarin [Coumadin] 4 mg PO DAILY 07/17/20 Atorvastatin Calcium [Lipitor] 40 mg PO QHS #60 tab 08/01/20 Carvedilol [Coreg (Beta Tejinder)] 6.25 mg PO BID #120 tab 08/01/20 Furosemide [Lasix] 20 mg PO DAILY #0 08/01/20 Lisinopril [Zestril] 5 mg PO DAILY #60 tab 08/01/20 The following prescriptions were given: Carvedilol [Coreg (Beta Tejinder)] 6.25 mg PO BID #120 tab Transmission Status: Pending to [facility] Atorvastatin Calcium [Lipitor] 40 mg PO QHS #60 tab Transmission Status: Pending to [facility] Lisinopril [Zestril] 5 mg PO DAILY #60 tab Transmission Status: Pending to [facility] Primary Care Physician: Daniel Chester DO [Primary Care Provider] - Please follow up with your Primary Care Physician in: in 1 week for pt Test Results: Test results from this visit will be discussed in further detail at your follow-up appointment, if applicable.
--- NOTE | 2020-08-01 11:57 | DS.PCM_ITS ---
Discharge Date and Diagnosis - Problem List Patient Problems: Active and Suspected Problems TIA (transient ischemic attack) (Acute) Expressive aphasia (Acute) Date of Admission: 07/31/20 Date of Discharge: 08/01/20 - Primary Discharge Diagnosis Acute Problems: Active Problems Expressive aphasia (Acute) Transient ischemic attack - Secondary Discharge Diagnosis Chronic Problems: Chronic Problems Pacemaker (Chronic) Afib (Chronic) Essential (primary) hypertension (Chronic) COPD (chronic obstructive pulmonary disease) (Chronic) Chronic respiratory failure with hypoxia, on home O2 therapy (Chronic) Hospital Course and Treatment Imaging Results: Clinical Impression(s) from Imaging Studies Brain CT 07/31/20 10:21 IMPRESSION: No acute intracranial hemorrhage. N.B. : The above information has been verbally conveyed by Radha Jacobs to Edmar Reid MD, on 07/31/2020 10:34:07 (ET). Electronically Signed: Radha Jacobs, at 10:34 EDT Tel , Service support , ADDENDUM: 07/31/20 1042 IMPRESSION: No acute intracranial hemorrhage. N.B. : The above information has been verbally conveyed by Radha Jacobs to Edmar Reid MD, on 07/31/2020 10:34:07 (ET). Electronically Signed: Radha Jacobs, at 10:34 EDT Tel , Service support , Head/Neck CTA 07/31/20 10:22 IMPRESSION: No significant stenosis of the carotid or vertebral arteries. Electronically Signed: Radha Jacobs at 11:04 EDT Tel , Service support , Chest X-Ray 07/31/20 11:00 IMPRESSION: COPD and emphysema. There has been no significant change since the previous study. Electronically Signed: Radha Jacobs at 11:35 EDT Tel , Service support , Brain CT 08/01/20 09:21 IMPRESSION: 1. No CT evidence of intracranial bleeding, acute ischemic infarct or acute intracranial abnormality. 2. Chronic white matter ischemic changes in both cerebral hemispheres. 3. No interval change when compared to 07/31/2020. Electronically Signed: Bradly Quezada MD at 10:56 EDT , Service support , 2D echo Interpretation Summary The estimated ejection fraction is 55 %. Diastolic function is indeterminate. Moderately dilated right ventricle. Moderate global right ventricular systolic dysfunction. The left atrium is severely enlarged. The right atrium is severely enlarged. Moderate (2+) tricuspid valve insufficiency. Pulmonary artery systolic pressure is 70-75 mmHg. Summary of Care Provided: 1. Transient ischemic attack. -Patient is an 80-year-old gentleman with significant risk factors for stroke including paroxysmal A. fib, hypertension who presents with spells of aphasia. Head CT obtained on admission was negative for acute CVA. Admitted to monitored bed for continuous telemetry, every 4 neurochecks and subsequent evaluation included a 2D echo. Had CTA obtained on admission did not show any evidence of large vessel occlusion. Patient is already on antiplatelet therapy did continue and added statin therapy -08/11/2020. Patient expressive is aphasia appears to have resolved. An MRI could not be performed in view of presence of pacemaker placement. Repeat head CT ordered for subsequent evaluation -Randal head CT was negative for acute CVA. Patient was discharged home with antiplatelet as well as statin therapy 2. Paroxysmal A. fib ?With subtherapeutic INR. Patient was on Coumadin which was apparently held following patient being placed on antibiotics. Coumadin resumed with daily monitoring of INR. -Patient was instructed to follow-up with Dr. Chester his primary care physician for repeat INR and subsequent adjustment of Coumadin dose within 3 to 5 days 3. Chronic diarrhea . Patient was apparently taking 6 tablets of Imodium on a daily basis per famil y. Given patient recent antibiotic use and his elevated WBC count stool for C. difficile was sent -08/01/2020. Stool for C. difficile came back negative. 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 Hypertension -Patient blood pressure was low during his hospitalization. Adjusted home meds. Patient was on Coreg 25 mg p.o. twice daily this was decreased to 6.25 mg p.o. twice daily, he was on lisinopril 20 mg p.o. twice daily decrease to lisinopril 5 mg daily, patient was on Lasix 40 mg daily this was decreased to Lasix 20 mg daily 6. Chronic hypoxic respiratory failure ?Secondary to COPD patient is on baseline home O2. Also did continue patient home regimen 7. Renal failure ?Acute versus chronic ?Patient baseline unknown on IV fluids with subsequent monitoring of electrolyte 8. DVT prophylaxis ?Lovenox pending normalization of INR to within a therapeutic range Patient Problems: Active and Suspected Problems TIA (transient ischemic attack) (Acute) Expressive aphasia (Acute) - Physical Exam Vitals/I&O's: Vital Signs Temp Pulse Resp BP Pulse Ox 98.1 F 69 20 H 95/62 97 08/01/20 10:30 08/01/20 10:30 08/01/20 10:30 08/01/20 10:30 08/01/20 10:30 Oxygen Flow Rate (L/min) 5 Oxygen Delivery Method Nasal Cannula Weight: 83.461 kg Body Mass Index (BMI) 24.9 Finger Stick Blood Glucose 98 Intake and Output for Last 24 Hours 07/30/20 07/31/20 08/01/20 23:59 23:59 23:59 Intake Total 1599.58 / 1819.58 798.75 / 798.75 Balance 1599.58 / 1819.58 798.75 / 798.75 General: Alert HEENT: Atraumatic Lungs: Diminished Neurological: Neuro grossly intact Psych/Mental Status: Normal Affect Microbiology Past 72 Hours 08/01/20 05:10 Stool Enteric Bacteriology - Final 08/01/20 05:10 Stool C. difficile DNA Amplification - Final Laboratory Results 07/31/20 13:50: PT 14.4, INR 1.2 07/31/20 13:50: Troponin I < 0.015 08/01/20 05:37: WBC 11.7 H, RBC 3.80 L, Hgb 12.1 L, Hct 37.3 L, MCV 98.2 H, MCH 31.8, MCHC 32.4, RDW Std Deviation 51.7 H, RDW Coeff of Tal 14.4, Plt Count 100 L, MPV 10.5, Immature Gran % (Auto) 1.900 H, Neut % (Auto) 85.2 H, Lymph % (Auto) 4.0 L, [place] % (Auto) 8.3, Eos % (Auto) 0.5, Baso % (Auto) 0.1, Absolute Neuts (auto) 10.0 H, Absolute Lymphs (auto) 0.47 L, Nucleated RBC % 0, Differential Comment SCANNED 08/01/20 05:37: Sodium 140, Potassium 4.4, Chloride 111 H, Carbon Dioxide 24.0, Anion Gap 5, BUN 52 H, Creatinine 0.96, Estim Creat Clear Calc 65.12, Est GFR (MDRD) Af Amer 96, Est GFR (MDRD) Non-Af 80, BUN/Creatinine Ratio 54.1 H, Glucose 88, Calcium 7.8 L, Magnesium 2.2, Triglycerides 81, Cholesterol 201 H, LDL Cholesterol 137 H, VLDL Cholesterol 16, HDL Cholesterol 48 08/01/20 05:37: PT 15.5 H, INR 1.3 Current Medications Acetaminophen (Tylenol) 650 mg PO .X1 PRN PRN Reason: Temp > 99.6 F Acetaminophen (Tylenol) 650 mg PO Q6H PRN PRN PRN Reason: Pain Score 1-10/Temp > 100.7 F Albuterol Sulfate (Ventolin Aerosols) 2.5 mg INHALATION Q6HWA.RT [facility] Last Admin: 08/01/20 07:40 Dose: 2.5 mg Documented by: Aspirin (Aspirin, Baby) 81 mg PO DAILYCM [facility] Last Admin: 08/01/20 08:43 Dose: Not Given Documented by: Atorvastatin Calcium (Lipitor) 40 mg PO QHS [facility] Last Admin: 07/31/20 20:38 Dose: 40 mg Documented by: Carvedilol (Coreg) 6.25 mg PO BID [facility] Last Admin: 08/01/20 09:12 Dose: Not Given Documented by: Diphenhydramine HCl (Benadryl) 50 mg IV .X1 PRN PRN Reason: Allergic Reaction Stop: 08/02/20 10:23 Enoxaparin Sodium (Lovenox) 40 mg SC DAILY [facility] Last Admin: 08/01/20 08:40 Dose: 40 mg Documented by: Famotidine 20 mg/ Sodium (Chloride) 10 mls @ 300 mls/hr IV .X1 PRN PRN Reason: Allergic Reaction Stop: 08/02/20 10:23 Nicardipine/Dextrose (Cardene-Dex 20 Mg/200 Ml Soln) 20 mg in 200 mls @ 50 mls/hr IV .Q4H PRN; Protocol PRN Reason: See Instructions Sodium Chloride () 1,000 mls @ 75 mls/hr IV .[id number] [facility] Stop: 08/02/20 04:58 Last Admin: 08/01/20 04:56 Dose: 75 mls/hr Documented by: Labetalol HCl (Trandate) 20 mg IV X1 PRN PRN Reason: BLOOD PRESSURE Labetalol HCl (Trandate) 20 mg IV X1 PRN; Protocol PRN Reason: BLOOD PRESSURE Labetalol HCl (Trandate) 10 - 20 mg IV Q10M PRN PRN PRN Reason: to Maintain BP Goals Lisinopril (Zestril) 5 mg PO BID [facility] Last Admin: 08/01/20 09:12 Dose: Not Given Documented by: Melatonin (Melatonin) 3 mg PO QHS PRN PRN PRN Reason: INSOMNIA Methylprednisolone (Solu-Medrol) 125 mg IV .X1 PRN PRN Reason: Allergic Reaction Stop: 08/02/20 10:23 Nitroglycerin (Nitrostat) 0.4 mg SUBLINGUAL Q5M PRN PRN Reason: CARDIAC/CHEST PAIN Ondansetron HCl (Zofran) 4 mg IV Q8H PRN PRN PRN Reason: NAUSEA/VOMITING Prednisone () 5 mg PO DAILYCM [facility] Last Admin: 08/01/20 08:44 Dose: Not Given Documented by: Senna/Docusate Sodium (Senokot-S, [place]-Colace) 2 tablet PO BID PRN PRN PRN Reason: Constipation Sodium Chloride () 10 - 40 ml IV UD PRN PRN Reason: SALINE FLUSH Last Admin: 07/31/20 16:46 Dose: 10 ml Documented by: Sodium Chloride () 10 - 40 ml IV UD PRN PRN Reason: SALINE FLUSH Warfarin Sodium (Jantoven) 4 mg PO DAILY@1700 [facility] Last Admin: 07/31/20 16:45 Dose: 4 mg Documented by: Discharge Diet: No Restrictions Home Medications: Medications to take at Discharge Aspirin [Aspirin, Baby] 81 mg PO DAILY 07/17/20 Budesonide/Formoterol Fumarate [Symbicort 160-4.5 Mcg Inhaler] 2 puff IH BID 07/17/20 Ipratropium/Albuterol Respimat [Combivent Respimat Inhal [place]] 2 puff INHALATION 4X/DAY 07/17/20 Prednisone 5 mg PO DAILY 07/17/20 Warfarin [Coumadin] 4 mg PO DAILY 07/17/20 Atorvastatin Calcium [Lipitor] 40 mg PO QHS #60 tab 08/01/20 Carvedilol [Coreg (Beta Tejinder)] 6.25 mg PO BID #120 tab 08/01/20 Furosemide [Lasix] 20 mg PO DAILY #0 08/01/20 Lisinopril [Zestril] 5 mg PO DAILY #60 tab 08/01/20 Following Prescriptions Were Given to Patient: Carvedilol [Coreg (Beta Tejinder)] 6.25 mg PO BID #120 tab Transmission Status: Pending to [facility] Atorvastatin Calcium [Lipitor] 40 mg PO QHS #60 tab Transmission Status: Pending to [facility] Lisinopril [Zestril] 5 mg PO DAILY #60 tab Transmission Status: Pending to [facility] Primary Care Physician: Daniel Chester DO [Primary Care Provider] - Please follow up with your Primary Care Physician in: in 3-5 DAYS week for PT/INR CHECK Disposition: Home Minutes spent on discharge:: 45 Patient Condition:: Stable Medical Necessity - Tobacco Use Smoking Status: Former smoker Tobacco Use: Non-smoker Meaningful Use Info Meaningful Use Diagnoses (Choose all that apply): None applicable Inpatient E&M: 98838 [facility]
--- NOTE | 2020-08-01 14:12 | CM.UR ---
Patient reviewed for obs status. Xsolis score at 89. Changed to IP earlier today as no plan to discharge patient. Patient's INR is subtherapeutic and will continue to monitor INR and give lovenox until therapeutic. Gilles Armstrong RN, CCM.
--- NOTE | 2020-08-03 11:49 | CASEMGMT ---
MARIA INES LOPES Discharge Follow-up Phone Call: MARITA: Tamie Strata: 3 Call Date: 08/03/2020 Discharge Date: 08/01/2020 Time of Call: 1145 Admitting Diagnosis: Aphasia, TIA Discharge follow-up call placed to pt. Pt states he has been doing well since discharge. States he is going to call Dr. Chester's office today to discuss the changes made in his blood pressure medications at discharge. Pt states they were greatly reduced from what he had been previously taken. Reviewed blood pressures and relayed to patient that his blood pressures were low during his stay. Pt states he is aware and understands this as the reason for the medication reductions. Pt states he will schedule his follow-up appointment with Dr. Chester also when he calls. Pt denies any other questions or concerns. Sunil Melendrez RN CM
== END 2020-08-01 15:40 | disposition home or self-care (01) | DRG 69 ==
LOC: ED 10:33 → PCU 12:04
PROVIDERS: Admitting Provider Internal Medicine; Emergency Provider Emergency Medicine; PCP Student in an Organized Health Care Education/Training Program; Visit Provider Internal Medicine
DX: G45.9 Transient cerebral ischemic attack, unspecified (principal); R47.01 Aphasia; J96.11 Chronic respiratory failure with hypoxia; Z99.81 Dependence on supplemental oxygen; I10 Essential (primary) hypertension; I48.0 Paroxysmal atrial fibrillation; Z95.0 Presence of cardiac pacemaker; Z79.01 Long term (current) use of anticoagulants; Z79.899 Other long term (current) drug therapy; Z87.891 Personal history of nicotine dependence; K52.9 Noninfective gastroenteritis and colitis, unspecified; J44.9 Chronic obstructive pulmonary disease, unspecified; N19 Unspecified kidney failure
CPT/HCPCS: 36415; 70450; 70496; 70498; 71045; 80048; 80061; 83735; 84484; 85025; 85610; 85730; 87493; 87506; 92523; 92610; 93005; 93306; 94640; 94667; 94668; 94762; 97161; 97165; 99251; 99285; J2997; J7030; J7040; Q9967; A4216; G0463

== ENCOUNTER → 2020-08-06 | Outpatient (CLI) | payer MEDICARE, SELFPAY ==
[2020-08-01 12:12] VITALS: BMI 24.9
[2020-08-06 11:46] LABS: Prothrombin Time Fingerstick 23.2 SEC (11.9-14.4)
== END | disposition home or self-care (01) ==
LOC: LAB 09:16
PROVIDERS: PCP Student in an Organized Health Care Education/Training Program; Referring Provider Student in an Organized Health Care Education/Training Program; Visit Provider Student in an Organized Health Care Education/Training Program
DX: I48.0 Paroxysmal atrial fibrillation (principal)
CPT/HCPCS: 36416; 85610

== ENCOUNTER 2023-11-02 15:51 | Inpatient (IN) | payer MEDICARE, MEDICAID, SELFPAY ==
[2023-11-02 15:52] VITALS: BP 137/102; PULSE 94; RESP 19; TEMP 36.8; O2SAT 88
[2023-11-02 15:57] VITALS: O2SAT 92
--- NOTE | 2023-11-02 15:57 | RAD_ITS ---
STUDY: X-RAY CHEST REASON FOR EXAM: Male, 83 years old. chest pain TECHNIQUE: AP portable COMPARISON: July 31, 2020 FINDINGS: There are severe emphysematous changes seen in the upper lobes bilaterally with chronic scarring in the left lower lobe and scarring in both the right upper as well as infiltrate in the right lower lobe. There is a small right pleural effusion. Heart is enlarged.. Normal mediastinum and hermann. Normal visualized pulmonary arteries. Diffusely calcified aortic arch and descending thoracic aorta. Pacer noted on the left with electrodes in satisfactory position. Normal visualized thoracic spine. Normal visualized ribs, clavicles, and shoulders. There is no demonstrated abnormality of the visualized soft tissue structures of the upper abdomen. The right lower lobe infiltrate and small pleural effusion are new findings since prior exam RAD/Chest 1 View (Portable) IMPRESSION: COPD and right pleural effusion with right lower lobe atelectasis or infiltrate Electronically Signed: Abhay Russell MD at 16:43 EST Reading Location ID and State: [address] [place] [address] Tel , Service support ,
--- NOTE | 2023-11-02 16:13 | ED.VIS.DYS ---
HPI History of Present Illness Chief Complaint: Shortness of Breath Narrative Narrative: 83-year-old male presenting with dyspnea. He has history of COPD, CHF, chronic hypoxic respiratory failure secondary to be patient on 5 L of oxygen baseline. Patient has been sick since Monday last week. Patient has progressive shortness of breath and weakness. He is coughing up janet sputum now and bloody sputum. No fever at home but generalized weakness is noted. Patient has been doing his regular breathing treatments at home and not helping. He has not been on any steroids. Patient is on Coumadin and his last INR was about a month ago. Patient states this is A-fib. [facility] Medical History (Updated 11/02/23 @ 18:[address] Janis Centeno MD) Chronic anemia Chronic respiratory failure with hypoxia, on home O2 therapy CKD (chronic kidney disease), stage II Conduction disorder of the heart Congestive heart failure (CHF) COPD (chronic obstructive pulmonary disease) Former tobacco use History of TIA (transient ischemic attack) Hypertension PAF (paroxysmal atrial fibrillation) Home Medications budesonide-formoterol HFA 160 mcg-4.5 mcg/actuation aerosol inhaler 2 puff IH BID 07/17/20 [History Last Taken Unknown] ipratropium 20 mcg-albuterol 100 mcg/actuation mist for inhalation 2 puff inhalation 4X/DAY 07/17/20 [History Last Taken Unknown] warfarin 4 mg tablet 4 mg PO DAILY 07/17/20 [History Last Taken Unknown] carvedilol 6.25 mg tablet 6.25 mg PO BID #120 tabs 08/01/20 [Rx Last Taken Unknown] lisinopril 5 mg tablet 5 mg PO DAILY #60 tabs 08/01/20 [Rx Last Taken Unknown] albuterol sulfate 2.5 mg/3 mL (0.083 %) solution for nebulization 2.5 mg inhalation PRN PRN shortness of breath or wheezing 11/02/23 [History Last Taken Unknown] furosemide 40 mg tablet 40 mg PO DAILY 11/02/23 [History Last Taken Unknown] Allergy/AdvReac Type Severity Reaction Status Date / Time amiodarone Allergy PT UNSURE Verified 11/02/23 16:01 OF REACTION metoprolol Allergy PT UNSURE Verified 11/02/23 16:01 OF REACTION milk Allergy PT UNSURE Verified 11/02/23 16:01 OF REACTION sotalol Allergy PT UNSURE Verified 11/02/23 16:01 OF REACTION Sulfa (Sulfonamide Allergy PT UNSURE Verified 11/02/23 16:01 Antibiotics) OF REACTION Social History Smoking Status: Former smoker ROS ROS ED Constitutional Constitutional ED: Denies chills, fever(s) or sweats Eyes Eyes: Denies blurry vision or change in vision ENT ENT ED: Denies ear pain or sore throat Cardiovascular Cardiovascular: Denies chest pain, palpitations or racing heartbeat Respiratory/Chest Respiratory/Chest: Reports cough, dyspnea, dyspnea on exertion and sputum Gastrointestinal Gastrointestinal: Denies abdominal pain, constipation, diarrhea, nausea or vomiting Genitourinary Genitourinary ED: Denies dysuria, hematuria or urinary frequency Musculoskeletal Musculoskeletal: Denies arthralgias, myalgias or neck pain Integumentary Denies abscess, Abrasions or rash Neurologic Neurologic: Denies headache(s), paresthesias or weakness Psychiatric Psychiatric: Denies anxiety, depression, suicidal ideation or suicidal thoughts Endocrine Endocrinology: Denies polydipsia or polyuria EXAM Physical Exam Const Vital Signs: 11/02/23 15:52 11/02/23 15:57 11/02/23 16:00 Temperature 98.3 F Temperature Source Oral Pulse Rate 94 Respiratory Rate 19 H Respiratory Effort Short of Breath Respiratory Depth Shallow Respiratory Pattern Tachypnea Blood Pressure 137/102 H Blood Pressure Mean 113 Pulse Ox 88 Oxygen Delivery Method Nasal Cannula Nasal Cannula Nasal Cannula Oxygen Flow Rate (L/min) 5 6 6 11/02/23 16:27 Temperature Temperature Source Pulse Rate 71 Respiratory Rate 26 H Respiratory Effort Respiratory Depth Respiratory Pattern Tachypnea Blood Pressure Blood Pressure Mean Pulse Ox Oxygen Delivery Method Oxygen Flow Rate (L/min) Positive well nourished General Appearance ED: Negative for pallor HEENT Reports dry mucous membranes atraumatic Mouth ED: Yes dry mucous membranes Mouth: dry mucous membranes Eyes EOMs intact bilaterally Neck no lymphadenopathy, supple and no meningeal signs Resp Auscultation: wheezes throughout and diminished lung sounds diffuse Cardio regular rate and regular rhythm GI non-tender Neuro oriented x3 and CN's II-XII intact bilaterally Sensorium / Orientation: alert Motor Exam: general weakness Psych mental status grossly normal Skin no wounds General Skin Exam: Negative for jaundice or pallor MDM MDM MDM Narrative Medical decision making narrative: 83-year-old male presenting with hypoxia. Apparently he has been having worsening symptoms of a cold at home since Monday. Denies fevers but is producing janet sputum. Patient on Coumadin for history of A-fib. Differential includes pneumonia, COVID, influenza, other viral etiology, dehydration, anemia, electrolyte abnormalities, ACS, CHF. CBC will be obtained to assess white blood cell count, hemoglobin completed. BMP to assess renal function, electrolytes, glucose. High-sensitivity troponin and EKG to assess for ischemia/dysrhythmia. Chest x-ray rule out pneumonia or CHF. Patient given breathing treatments and Solu-Medrol as initial treatment. He is 88% on 5 and 6 L. He did cough up some bloody sputum and this will be sent for culture. COVID, influenza, RSV will be obtained. EKG on my interpretation shows atrial paced rhythm at 71 bpm without sign ischemic change. Chest x-ray my interpretation shows a large right pleural effusion. Radiologist also interprets this and agrees but states there may be infiltrate. CBC shows normal white blood cell count 9.5. Hemoglobin 12.3. Platelets are 102. Troponin is 46. BNP 1308. INR therapeutic at 2.1. Creatinine normal at 1.19. Patient is hypoxic on baseline oxygen and increased work of breathing. I feel he will likely need to be admitted. I went to give some Lasix and talk to hospitalist. Patient will be covered with antibiotics empirically to cover for pneumonia. Impression: 1. CHF 2. Acute hypoxic respiratory failure 3. Pneumonia 4. Hemoptysis. Lab Data Labs: Laboratory Results - last 24 hr 11/02/23 16:08 WBC 9.5 RBC 3.93 L Hgb 12.3 L Hct 38.6 L MCV 98.2 H MCH 31.3 MCHC 31.9 L RDW Std Deviation 55.1 H RDW Coeff of Tal 15.2 H Plt Count 102 L MPV 10.6 Immature Gran % (Auto) 0.500 Neut % (Auto) 83.1 H Lymph % (Auto) 6.9 L [place] % (Auto) 9.2 Eos % (Auto) 0.1 Baso % (Auto) 0.2 Absolute Neuts (auto) 7.9 H Absolute Lymphs (auto) 0.66 L Nucleated RBC % 0 PT 23.6 H INR 2.1 Sodium 138 Potassium 4.3 Chloride 103 Carbon Dioxide 29.0 Anion Gap 6 BUN 37 H Creatinine 1.19 Est GFR (MDRD) Af Amer 75 Est GFR (MDRD) Non-Af 62 BUN/Creatinine Ratio 31.1 H Glucose 123 H Calcium 8.9 Magnesium 2.4 Troponin I High Sens 46 B-Natriuretic Peptide 1308.9 H Radiography Diagnostic Testing: Clinical Impression(s) from Imaging Studies Chest X-Ray 11/02/23 15:57 IMPRESSION: COPD and right pleural effusion with right lower lobe atelectasis or infiltrate Electronically Signed: Abhay Russell MD at 16:43 EST Reading Location ID and State: [facility] / [place] Tel , Service support , Discharge Plan Disposition Disposition: Acute Care Hospital [facility] Discharge Date/Time: 11/02/23 18:55
[2023-11-02] MEDS: MethylPREDNISolone 125 MG/2 ML Vial IV (16:17)
[2023-11-02] MEDS: Ipratropium/Albuterol Sulfate 3 ML AMPUL.NEB INHALATION (16:26)
[2023-11-02] MEDS: Albuterol 2.5 MG/3 ML VIAL.NEB. INHALATION ×2 (16:26→22:36)
[2023-11-02 16:27] VITALS: PULSE 71; RESP 26
[2023-11-02 16:27] LABS: Absolute Lymphocyte Count 0.66 X10^3/uL (0.83-4.51); Absolute Neutrophil Count 7.9 X10^3/uL (2.0-7.7); Basophil# 0.02 X10^3/uL; Basophil% 0.2 % (0-1); Eosinophil# 0.01 X10^3/uL; Eosinophils% 0.1 % (0-5); Hematocrit 38.6 % (40-54); Hemoglobin 12.3 g/dL (13.0-16.5); Lymphocyte # 0.66 X10^3/ul (0.83-4.51); Lymphocyte % 6.9 % (19-41); Mean Corp Hgb Conc 31.9 g/dL (32-36); Mean Corpuscular Hgb 31.3 pg (27.0-32.0); Mean Corpuscular Volume 98.2 fL (80-94); Mean Platelet Vol. 10.6 fl (6.2-12.0); Monocyte# 0.88 X10^3/uL; Monocyte% 9.2 % (0-10); NRBC Flagged by Analyzer 0 % (0-5); Neutrophil # 7.92 X10^3/uL (2.7-7.7); Neutrophil % 83.1 % (47-70); Platelet Count 102 K/mm3 (150-450); RBC Distribution Width CV 15.2 % (11.6-14.6); RBC Distribution Width SD 55.1 fl (35.1-43.9); Red Blood Count 3.93 M/mm3 (4.6-6.2); White Blood Count 9.5 K/mm3 (4.4-11.0)
[2023-11-02 16:33] LABS: International Normalized Ratio 2.1; Prothrombin Time (Protime)PT. 23.6 SECONDS (11.7-14.9)
[2023-11-02 16:40] LABS: BNP,B-Type NATRIURETIC PEPTIDE 1308.9 pg/mL (0-100)
[2023-11-02 16:43] LABS: Anion Gap 6 (5-15); BUN 37 mg/dL (7-18); BUN/Creat Ratio 31.1 RATIO (10-20); Calcium,Total 8.9 mg/dL (8.5-10.1); Chloride 103 mmol/L (98-107); Creatinine, Serum 1.19 mg/dL (0.70-1.30); EST Glomerular Filtration Rate 62 mL/min (>60); Est Glom Filt Rate - Afr Amer 75 mL/min (>60); Glucose 123 mg/dL (74-106); Potassium 4.3 mmol/L (3.5-5.1); Sodium Level 138 mmol/L (136-145); Troponin-I HS 46 pg/mL (3.0-78.0)
[2023-11-02] MEDS: Furosemide 40 MG/4 ML Vial IV (17:53)
--- NOTE | 2023-11-02 18:15 | HP.PCM.HOS_ITS ---
HPI - General General Date of Admission: 11/02/23 Date of Service: 11/02/23 Chief Complaint: Dyspnea, cough, fatigue, malaise, blood tinged sputum. HPI Narrative The patient is an 83 y/o M w/ PMHx: CKD stage II per GFR trending, PAF, COPD wi th Chronic Hypoxic Respiratory Failure (5L NC), HTN, HLD, Hx TIA, Former tobacco use, Chronic anemia, Conduction system disorder s/p pacemaker status, Chronic diarrhea, HF presumed pEF based on 2020 ECHO but not certain with chronic R sided pleural effusion requiring prior thoracentesis with cytology of note negative/no infectious etiology per daughter report who presents to the [facility] ED on 11/02/23 with history of worsening dyspnea with recent upper respiratory type symptoms starting the Monday of the week prior with progressively worsening dyspnea as well as weakness and productive cough of janet sputum and now occasional blood-tinged sputum with no recent fevers with breathing treatments a t home without any improvement prompting eventual ED evaluation. Of note his urine in the ED is blue and daughter confirms that she has been giving him methylene blue specifically for dementia versus dementia prevention. She reports that she is a holistic healthcare worker. Workup in the ED included T98.3, heart 94, BP 137/102, respiratory rate 19, initially 88% on 5 L nasal cannula-->93% on 6L on NC, CBC with WBC 9.5, hemoglobin 12.3, MCV 98.2, platelet 102 with left shift and lymphopenia, coags with PT 23.6, INR 2.1, BMP with BUN/creatinine 37/1.19, glucose 123, troponin 46, BNP 1308.9, rapid SARS COVID/flu/RSV PCR negative, sputum culture requested per ED physician, chest x- ray with COPD type changes and a right pleural effusion with right lower lobe atelectasis versus infiltrate, EKG with atrial paced rhythm with no acute evidence of ischemia. In the ED patient administered albuterol, DuoNeb therapy, Solu-Medrol 125 mg IV x 1 as well as Lasix 40 mg IV x 1, IV 500 mg azithromycin, IV Rocephin 1 g x 1. [facility] Medical History (Updated 11/02/23 @ 19:[address] Janis Centeno MD) Chronic anemia Chronic respiratory failure with hypoxia, on home O2 therapy CKD (chronic kidney disease), stage II Conduction disorder of the heart Congestive heart failure (CHF) COPD (chronic obstructive pulmonary disease) Former tobacco use History of TIA (transient ischemic attack) Hypertension PAF (paroxysmal atrial fibrillation) Valvular heart disease Home Medications budesonide-formoterol HFA 160 mcg-4.5 mcg/actuation aerosol inhaler 2 puff IH BID 07/17/20 [History Last Taken Unknown] ipratropium 20 mcg-albuterol 100 mcg/actuation mist for inhalation 2 puff inhalation 4X/DAY 07/17/20 [History Last Taken Unknown] warfarin 4 mg tablet 4 mg PO DAILY 07/17/20 [History Last Taken Unknown] carvedilol 6.25 mg tablet 6.25 mg PO BID #120 tabs 08/01/20 [Rx Last Taken Unknown] lisinopril 5 mg tablet 5 mg PO DAILY #60 tabs 08/01/20 [Rx Last Taken Unknown] albuterol sulfate 2.5 mg/3 mL (0.083 %) solution for nebulization 2.5 mg inhalation PRN PRN shortness of breath or wheezing 11/02/23 [History Last Taken Unknown] furosemide 40 mg tablet 40 mg PO DAILY 11/02/23 [History Last Taken Unknown] Allergy/AdvReac Type Severity Reaction Status Date / Time amiodarone Allergy PT UNSURE Verified 11/02/23 16:01 OF REACTION metoprolol Allergy PT UNSURE Verified 11/02/23 16:01 OF REACTION milk Allergy PT UNSURE Verified 11/02/23 16:01 OF REACTION sotalol Allergy PT UNSURE Verified 11/02/23 16:01 OF REACTION Sulfa (Sulfonamide Allergy PT UNSURE Verified 11/02/23 16:01 Antibiotics) OF REACTION Family History (Updated 11/02/23 @ 19:[address] Janis Centeno MD) Father CAD (coronary artery disease) Heart disease Hypertension Myocardial infarction Mother No problems noted. Surgical History (Updated 11/02/23 @ 19:[address] Janis Centeno MD) H/O aortic valve replacement H/O bilateral inguinal hernia repair S/P cardiac pacemaker procedure Social History (Updated 11/02/23 @ 19:[address] Janis Centeno MD) household members: spouse, family and children Smoking Status: Former smoker pack-years: 40 how long ago did patient quit smoking: Quit age 38, smoked 20-40, 2 ppd. alcohol intake: never substance use type: does not use ROS ROS Narrative Admission Review of Systems: CONSTITUTIONAL: No weight loss, fever, chills, + weakness or fatigue. HEENT: + Mild congestion, rhinorrhea. Eyes: No visual loss, blurred vision, double vision or yellow sclerae. Ears, Nose, Throat: No hearing loss, sneezing, sore throat. SKIN: No rash or itching, lesions, wounds. CARDIOVASCULAR: + Orthopnea, mild chronic peripheral edema. No chest pain, chest pressure or chest discomfort, palpitations, syncopal events. RESPIRATORY: + Dyspnea, worse with exertion with mildly productive cough with sputum blood-tinged, intermittent wheezing. No coleman hemoptysis. GASTROINTESTINAL: + anorexia. No nausea, vomiting or diarrhea, abdominal pain, melena, BRBPR. GENITOURINARY: No dysuria, frequency, urgency or retention. NEUROLOGICAL: No headache, dizziness, syncope, paralysis, ataxia, numbness or tingling in the extremities, focal weakness, change in bowel or bladder control, seizure. MUSCULOSKELETAL: + muscle, back pain, joint pain or stiffness. HEMATOLOGIC: + Anemia, blood flecked sputum as noted, easy bruising LYMPHATICS: No enlarged nodes. No history of splenectomy. PSYCHIATRIC: No history of depression or anxiety. ENDOCRINOLOGIC: No reports of sweating, cold or heat intolerance. No polyuria or polydipsia. ALLERGIES: No history of asthma, hives, eczema or rhinitis. Vital Signs Vital Signs Vital Signs: 11/02/23 15:52 11/02/23 15:57 11/02/23 16:00 Temperature 98.3 F Temperature Source Oral Pulse Rate 94 Respiratory Rate 19 H Respiratory Effort Short of Breath Respiratory Depth Shallow Respiratory Pattern Tachypnea Blood Pressure 137/102 H Blood Pressure Mean 113 Pulse Ox 88 Oxygen Delivery Method Nasal Cannula Nasal Cannula Nasal Cannula Oxygen Flow Rate (L/min) 5 6 6 11/02/23 16:27 Temperature Temperature Source Pulse Rate 71 Respiratory Rate 26 H Respiratory Effort Respiratory Depth Respiratory Pattern Tachypnea Blood Pressure Blood Pressure Mean Pulse Ox Oxygen Delivery Method Oxygen Flow Rate (L/min) Physical Exam Narrative Physical Examination: General: Awake, alert, oriented x 3 to self, place and recent events, is chronically hard of hearing, remains cooperative, seated upright in the bed, fatigued appearing. Skin: Normal color, normal turgor, no icterus, no cyanosis except for various staged ecchymoses, occasional abrasion. HEENT: AT/NC, EOMI, PERRLA, mildly dry MM, no carotid bruits, + JVD noted. Lungs: Diminished, greater bases, right greater than left, mild rales, occasional end expiratory wheezing, is pursed lip breathing but daughter who is present notes that this is chronic, mildly increased respiratory rate but no distress and she states he does seem mildly improved since initial ED arrival. Heart: Regular rate and rhythm; no gallop, rub audible, + SM. Abdomen: Soft, NTTP, ND, mildly hyperactive BS, no appreciated HSM Extremities: No cyanosis, no clubbing, mild not markedly pitting ankle edema. Neurological: Patient awake, alert, oriented as noted, cognitive function appears baseline intact; pupils equally reactive to light and accommodation, cranial nerves grossly normal, moving all 4 extremities, strength moderately to severely globally decreased. Psychiatric: Affect appears fatigued, no acute evidence of depressive or anxiety feelings. Results Lab / Micro Data 11/02/23 16:08 11/02/23 16:08 Labs: Laboratory Results - last 24 hr 11/02/23 16:08: WBC 9.5, RBC 3.93 L, Hgb 12.3 L, Hct 38.6 L, MCV 98.2 H, MCH 31.3, MCHC 31.9 L, RDW Std Deviation 55.1 H, RDW Coeff of Tal 15.2 H, Plt Count 102 L, MPV 10.6, Immature Gran % (Auto) 0.500, Neut % (Auto) 83.1 H, Lymph % (Auto) 6.9 L, [place] % (Auto) 9.2, Eos % (Auto) 0.1, Baso % (Auto) 0.2, Absolute Neuts (auto) 7.9 H, Absolute Lymphs (auto) 0.66 L, Nucleated RBC % 0, PT 23.6 H, INR 2.1, Sodium 138, Potassium 4.3, Chloride 103, Carbon Dioxide 29.0, Anion Gap 6, BUN 37 H, Creatinine 1.19, Est GFR (MDRD) Af Amer 75, Est GFR (MDRD) Non-Af 62, BUN/Creatinine Ratio 31.1 H, Glucose 123 H, Calcium 8.9, Troponin I High Sens 46, B-Natriuretic Peptide 1308.9 H Micro: Microbiology 11/02/23 16:09 Mucosa - Nose SARS-CoV-2, Influenza & RSV (PCR) - Final Imagaing Radiology Impression Chest X-Ray 11/02/23 15:57 IMPRESSION: COPD and right pleural effusion with right lower lobe atelectasis or infiltrate Electronically Signed: Abhay Russell MD at 16:43 EST Reading Location ID and State: [facility] / [place] Tel , Service support , Assessment & Plan Assessment/Plan (1) CHF exacerbation: (2) COPD exacerbation: (3) Pneumonia: PLAN: Plan The patient is an 83 y/o M w/ PMHx: CKD stage II per GFR trending, PAF, COPD with Chronic Hypoxic Respiratory Failure (5L NC), HTN, HLD, Hx TIA, Former tobacco use, Chronic anemia, Conduction system disorder s/p pacemaker status, Chronic diarrhea, HF presumed pEF based on 2019 ECHO but not certain with chronic R sided pleural effusion requiring prior thoracentesis with cytology of note negative/no infectious etiology per daughter report who presents to the [facility] ED on 11/02/23 with history of worsening dyspnea with recent upper respiratory type symptoms starting the Monday of the week prior with progressively worsening dyspnea as well as weakness and productive cough of janet sputum and now occasional blood-tinged sputum with no recent fevers with breathing treatments at home without any improvement prompting eventual ED evaluation. #1. Acute Hypoxic on Chronic Hypoxic Respiratory Failure secondary to to Suspected Decompensated HF, presumed HFpEF but last ECHO remote as noted and Acute on Chronic COPD exacerbation with possible recent Acute Viral Syndrome with potential right lower lobe infiltrate possibly community-acquired pneumonia: Patient administered IV lasix, DuoNeb and albuterol therapy as well as IV Solu-Medrol in the ED, will admit to PCU, maintain on cardiac telemetry, obtain cardiac enzyme series, obtain serial EKGs, continue IV lasix diuresis, mo nitor I/Os, continue medical therapy, obtain TSH and magnesium level. Most recent ECHO noted 07/31/2020 EF 55%, diastolic function indeterminate, moderately dilated RV, moderate global RV systolic dysfunction, severely enlarged LA and RA, moderate TV insufficiency, PASP 70 to 75 mmHg thus we will request repeat, maintain on oxygen with wean as tolerated to home oxygen supplementation, continue ATC budesonide, PRN albuterol, IV methylprednisolone, HOB, IS parameters, will obtain sputum Cx, respiratory viral panel, Legionella and streptococcal urine antigens, procalcitonin, will in the interim continue IV azithromycin and IV Rocephin, repeat CXR in AM. PT/OT/case management consultation for discharge planning. #2. PAF: We will continue patient home Coreg, given blood tinged sputum will hold coumadin temporarily. #3. Chronic macrocytic anemia: Admission hemoglobin 12.3, MCV 98.2, baseline hemoglobin previously noted primarily 12-13 range, stable, continue to trend. #4. Chronic Kidney Disease Stage II per GFR trending: Admission BUN/Cr 37/1.19, baseline renal function 0.9-1.1, repeat BMP in AM. #5. Hypertension: Continue home regimen including lisinopril, Coreg, IV Lasix as noted above, PRN hydralazine. #6. Hyperlipidemia: Not on statin therapy per current list with no listed allergy, FLP in AM. #7. History of TIA: Will continue Coumadin with INR trending, continue hype rtensive regimen, not on statin therapy as noted. #8. Conduction system disorder: Status post pacemaker status, encourage continued outpatient evaluation with cardiology, interrogation requested to be cautious. #9. Chronic diarrhea: Will have as needed loperamide. #10. Former tobacco use: Encourage continued tobacco cessation. #11. DVT prophylaxis: Given blood tinged sputum will hold coumadin temporarily, trend INR, SCDs. #12. CODE status: Patient KENYON is his and living will is currently in place. Discussed CODE status at length including difference between FULL code, DNR-CCA and DNR-CC status. Following discussions about the differences in these status, requested Full Code status. Did discuss that given his age and underlying committees likely the prognosis with attempts for resuscitation would be poor if he should suffer a cardiopulmonary event. Advanced Care Planning Face to Face Time: 16 minutes. Charges/Coding Visit Charges Inpatient E&M: 56091 Init Hosp L3 Procedures Hospitalists Procedures: 95700 Advncd Care Plan 30 Min
[2023-11-02] MEDS: Ceftriaxone 1 GM/50 ML BAG IV (18:42)
[2023-11-02 18:44] VITALS: BP 140/62; PULSE 73; RESP 22; TEMP 36.7; O2SAT 93
[2023-11-02 18:54] LABS: Magnesium 2.4 mg/dL (1.6-2.6)
[2023-11-02 19:50] VITALS: BP 139/69; PULSE 82; RESP 18; TEMP 36.5; O2SAT 92; BMI 23.5
--- NOTE | 2023-11-02 20:23 | ECHOD_ITS ---
Version 2 Reason For Study: CHF Procedure This was a 2D Doppler, Color Flow transthoracic echocardiogram. The study was technically difficult. The study was technically limited. Due to COPD. No available accoustic apical window. Exam performed in department. Left Ventricle Normal LV size. D shaped septum in diastole. Left ventricular systolic function is lower limits of normal. The estimated ejection fraction is 50 %. No regional wall motion abnormalities noted. Right Ventricle Moderately dilated right ventricle. ICD or pacer leads identified within the right ventricle. Mild global right ventricular systolic dysfunction. Tricuspid Valve Normal tricuspid valve. Mild to moderate (1-2+) tricuspid valve insufficiency. Pulmonary artery systolic pressure is 53 mmHg. Mild pulmonary hypertension. Aortic Valve Trisinus/trileaflet aortic valve. Great Vessels Normal aortic root. The pulmonary artery is normal size. Normal inferior vena cava. Pericardium/Pleural No pericardial effusion. MMode/2D Measurements & Calculations LVIDd: 4.6 cm IVSd: 1.3 cm LA dimension: 4.3 cm LVIDs: 2.9 cm LVPWd: 1.1 cm FS: 35.8 % LAV(MOD-sp2): 73.5 ml Doppler Measurements & Calculations MV V2 max: 97.9 cm/sec Ao V2 max: 135.9 cm/sec LV V1 max: 103.4 cm/sec MV max P.8 mmHg Ao max P.4 mmHg LV V1 max P.3 mmHg MV V2 mean: 46.9 cm/sec Ao V2 mean: 97.2 cm/sec LV V1 mean P.9 mmHg MV mean P.1 mmHg Ao mean P.1 mmHg LV V1 mean: 64.6 cm/sec MV V2 VTI: 17.8 cm Ao V2 VTI: 26.7 cm LV V1 VTI: 18.1 cm AV (velocity ratio): 0.68 PA V2 max: 80.1 cm/sec TR max uzair: 350.3 cm/sec PA V2 mean: 49.1 cm/sec PI dec slope: 164.7 cm/sec2 TR max P.1 mmHg ECHO/Echo Complete Interpretation Summary Normal LV size. Left ventricular systolic function is lower limits of normal. The estimated ejection fraction is 50 %. D shaped septum in diastole. Pulmonary artery systolic pressure is 53 mmHg. Mild pulmonary hypertension. Ordering Physician: Janis Centeno Referring Physician: Daniel Chester Performed By: Bindu Pradhan, LUIS FCS, RVT
[2023-11-02] MEDS: Azithromycin 500 MG in Dextrose 5%-Water (250mL Bag) 250 ML 250 MG IV (20:30)
[2023-11-02] MEDS: 0.9% Saline Lock 10 ML Syringe IV (21:01)
[2023-11-02] MEDS: Carvedilol 6.25 MG Tablet PO (21:01)
[2023-11-02 21:56] LABS: Procalcitonin 0.65 ng/mL (0.00-0.09)
[2023-11-02 22:36] VITALS: PULSE 74; RESP 24; O2SAT 92
[2023-11-02 22:54] LABS: Troponin-I HS 42 pg/mL (3.0-78.0)
--- NOTE | 2023-11-02 23:39 | NURSING ---
2000 EMERGENCY DOCUMENTATION
[2023-11-03] VITALS (15 sets, daily range): BP systolic 117–150; BP diastolic 47–78; PULSE 68–83; RESP 17–24; TEMP 36.1–36.7; O2SAT 92–96; BMI 23.6
[2023-11-03 01:02] LABS: Troponin-I HS 40 pg/mL (3.0-78.0)
[2023-11-03] MEDS: Albuterol 2.5 MG/3 ML VIAL.NEB. INHALATION ×6 (02:54→23:32)
[2023-11-03 04:01] LABS: Absolute Lymphocyte Count 0.38 X10^3/uL (0.83-4.51); Absolute Neutrophil Count 4.3 X10^3/uL (2.0-7.7); Basophil# 0.01 X10^3/uL; Basophil% 0.2 % (0-1); Hematocrit 34.6 % (40-54); Hemoglobin 11.2 g/dL (13.0-16.5); Lymphocyte # 0.38 X10^3/ul (0.83-4.51); Lymphocyte % 7.9 % (19-41); Mean Corp Hgb Conc 32.4 g/dL (32-36); Mean Corpuscular Hgb 31.5 pg (27.0-32.0); Mean Corpuscular Volume 97.5 fL (80-94); Mean Platelet Vol. 10.6 fl (6.2-12.0); Monocyte# 0.13 X10^3/uL; Monocyte% 2.7 % (0-10); NRBC Flagged by Analyzer 0 % (0-5); Neutrophil # 4.26 X10^3/uL (2.7-7.7); POSITIVE COUNT YES; POSITIVE DIFFERENTIAL YES; Platelet Count 89 K/mm3 (150-450); RBC Distribution Width SD 54.3 fl (35.1-43.9); Red Blood Count 3.55 M/mm3 (4.6-6.2); White Blood Count 4.8 K/mm3 (4.4-11.0)
[2023-11-03 04:08] LABS: International Normalized Ratio 2.4; Prothrombin Time (Protime)PT. 26.6 SECONDS (11.7-14.9)
[2023-11-03 04:10] LABS: Differential Indicated SCAN CRITERIA MET
[2023-11-03 04:18] LABS: Troponin-I HS 37 pg/mL (3.0-78.0)
[2023-11-03 04:29] LABS: ALB/GLOB Ratio 0.8 RATIO (0.9-2.4); AST(SGOT) 24 U/L (15-37); Alanine Aminotransfer ALT/SGPT 23 U/L (16-61); Albumin, Serum 2.3 g/dL (3.2-5.0); Alkaline Phosphatase 74 U/L (45-117); Anion Gap 2 (5-15); BUN 38 mg/dL (7-18); BUN/Creat Ratio 27.5 RATIO (10-20); Chloride 105 mmol/L (98-107); Cholesterol 145 mg/dL (200); Creatinine, Serum 1.38 mg/dL (0.70-1.30); EST Glomerular Filtration Rate 52 mL/min (>60); Est Glom Filt Rate - Afr Amer 63 mL/min (>60); Estimated Creatinine Clearance 41.68 ml/min; Globulin 2.8 g/dL (2.2-4.2); Glucose 163 mg/dL (74-106); High Density Lipoprotein 48 mg/dL; Potassium 4.4 mmol/L (3.5-5.1); Protein, Total 5.1 g/dL (6.4-8.2); Sodium Level 140 mmol/L (136-145); Thyroid Stim Hormone (TSH) 0.25 uIU/mL (0.358-3.74); Triglycerides 51 mg/dL; Very Low Density Lipoprotein 10 mg/dL (5-40)
[2023-11-03 04:47] LABS: Differential Comment SCANNED
[2023-11-03] MEDS: 0.9% Saline Lock 10 ML Syringe IV ×3 (05:37→19:49)
[2023-11-03] MEDS: Azithromycin 500 MG in Dextrose 5%-Water (250mL Bag) 250 ML 250 MG IV (09:09)
--- NOTE | 2023-11-03 09:52 | PN.HOSP_ITS ---
Reason for Visit Reason for Visit: Diagnoses Heart failure, unspecified (11/02/23) Pneumonia, unspecified organism (11/02/23) Chronic obstructive pulmonary disease with (acute) exacerbation (11/02/23) Subjective Subjective Patient is an 83-year-old gentleman with multiple comorbidities including chronic hypoxic respiratory failure on baseline home oxygen 5 L at rest who presented with progressive shortness of breath. An assessment of acute hypoxic on chronic respiratory failure made admitted to a monitored bed for further management Objective Data Objective Data Vital Signs: Vital Signs Temp Pulse Resp BP Pulse Ox O2 Del Method O2 Flow Rate 97.7 F L 73 18 144/78 H 93 Nasal Cannula 5 11/03/23 09:02 11/03/23 09:02 11/03/23 09:02 11/03/23 09:02 11/03/23 09:20 11/03/23 09:20 11/03/23 09:20 Oxygen Flow Rate (L/min) 5 Oxygen Delivery Method Nasal Cannula Weight: 76.8 kg Body Mass Index (BMI) 23.6 Intake & Output: Intake and Output for Last 24 Hours 11/01/23 11/02/23 11/03/23 23:59 23:59 23:59 Intake Total 305 / 305 Output Total 250 / 250 Balance 305 / 305 -250 / -250 Lab / Micro Data 11/03/23 03:45 11/03/23 03:45 Labs: Laboratory Results - last 24 hr 11/02/23 16:08: WBC 9.5, RBC 3.93 L, Hgb 12.3 L, Hct 38.6 L, MCV 98.2 H, MCH 3 1.3, MCHC 31.9 L, RDW Std Deviation 55.1 H, RDW Coeff of Tal 15.2 H, Plt Count 102 L, MPV 10.6, Immature Gran % (Auto) 0.500, Neut % (Auto) 83.1 H, Lymph % (Auto) 6.9 L, [place] % (Auto) 9.2, Eos % (Auto) 0.1, Baso % (Auto) 0.2, Absolute Neuts (auto) 7.9 H, Absolute Lymphs (auto) 0.66 L, Nucleated RBC % 0, PT 23.6 H, INR 2.1, Sodium 138, Potassium 4.3, Chloride 103, Carbon Dioxide 29.0, Anion Gap 6, BUN 37 H, Creatinine 1.19, Est GFR (MDRD) Af Amer 75, Est GFR (MDRD) Non-Af 62, BUN/Creatinine Ratio 31.1 H, Glucose 123 H, Calcium 8.9, Magnesium 2.4, Troponin I High Sens 46, B-Natriuretic Peptide 1308.9 H 11/02/23 20:50: Procalcitonin 0.65 H 11/02/23 22:00: Troponin I High Sens 42 11/03/23 00:15: Troponin I High Sens 40 11/03/23 03:45: WBC 4.8, RBC 3.55 L, Hgb 11.2 L, Hct 34.6 L, MCV 97.5 H, MCH 31.5, MCHC 32.4, RDW Std Deviation 54.3 H, RDW Coeff of Tal 15.0 H, Plt Count 89 L, MPV 10.6, Immature Gran % (Auto) 0.200, Neut % (Auto) 89.0 H, Lymph % (Auto) 7.9 L, [place] % (Auto) 2.7, Eos % (Auto) 0.0, Baso % (Auto) 0.2, Absolute Neuts (auto) 4.3, Absolute Lymphs (auto) 0.38 L, Nucleated RBC % 0, Differential Comment SCANNED, PT 26.6 H, INR 2.4, Sodium 140, Potassium 4.4, Chloride 105, Carbon Dioxide 33.0 H, Anion Gap 2 L, BUN 38 H, Creatinine 1.38 H, Estim Creat Clear Calc 41.68, Est GFR (MDRD) Af Amer 63, Est GFR (MDRD) Non-Af 52 L, BUN/Creatinine Ratio 27.5 H, Glucose 163 H, Calcium 8.0 L, Total Bilirubin 0.60, AST 24, ALT 23, Alkaline Phosphatase 74, Troponin I High Sens 37, Total Protein 5.1 L, Albumin 2.3 L, Globulin 2.8, Albumin/Globulin Ratio 0.8 L, Triglycerides 51, Cholesterol 145, LDL Cholesterol 87, VLDL Cholesterol 10, HDL Cholesterol 48, TSH 0.25 L Micro: Microbiology 11/03/23 05:45 Urine, Clean Catch Legionella Antigen - Final 11/03/23 05:45 Urine, Clean Catch Streptococcus pneumoniae Antigen (M - Final 11/02/23 16:09 Mucosa - Nose SARS-CoV-2, Influenza & RSV (PCR) - Final Radiography Diagnostic Testing: Radiology Impression Chest X-Ray 11/02/23 15:57 IMPRESSION: COPD and right pleural effusion with right lower lobe atelectasis or infiltrate Electronically Signed: Abhay Russell MD at 16:43 EST Reading Location ID and State: [address] [place] [address] Tel , Service support , Physical Exam Narrative Physical Examination: General: Awake, alert, oriented x 3 to self, place and recent events, is chronically hard of hearing, remains cooperative, seated upright in the bed, fatigued appearing. Skin: Normal color, normal turgor, no icterus, no cyanosis except for various staged ecchymoses, occasional abrasion. HEENT: AT/NC, EOMI, PERRLA, mildly dry MM, no carotid bruits, + JVD noted. Lungs: Diminished, greater bases, right greater than left, mild rales, occasional end expiratory wheezing, is pursed lip breathing but daughter who is present notes that this is chronic, mildly increased respiratory rate but no distress and she states he does seem mildly improved since initial ED arrival. Heart: Regular rate and rhythm; no gallop, rub audible, + SM. Abdomen: Soft, NTTP, ND, mildly hyperactive BS, no appreciated HSM Extremities: No cyanosis, no clubbing, mild not markedly pitting ankle edema. Neurological: Patient awake, alert, oriented as noted, cognitive function appears baseline intact; pupils equally reactive to light and accommodation, cranial nerves grossly normal, moving all 4 extremities, strength moderately to severely globally decreased. Psychiatric: Affect appears fatigued, no acute evidence of depressive or anxiety feelings. Assessment & Plan Assessment/Plan (1) CHF exacerbation: (2) COPD exacerbation: (3) Pneumonia: PLAN: Plan Patient is an 83-year-old gentleman with multiple comorbidities including chronic hypoxic respiratory failure on baseline home oxygen 5 L at rest who presented with progressive shortness of breath. An assessment of acute hypoxic on chronic respiratory failure made admitted to a monitored bed for further management 1. Acute on chronic hypoxic respiratory failure ? Due to combination of decompensated congestive heart failure as well as COPD with acute exacerbation admitted to a monitored bed with treatment of the underlying etiology 2. Acute on chronic congestive heart failure with preserved ejection fraction ? Echo from 07/31/2022 demonstrated EF of 55%. Repeat echo ordered patient placed on diuretics, strict input and output, daily weight as well as fluid restriction and low-sodium diet 3. COPD with acute exacerbation ? Managed with bronchodilator treatment supplemental oxygen systemic steroid as well as antibiotic therapy 4. Paroxysmal A. fib ? Rate controlled, on systemic anticoagulation with Coumadin INR is therapeutic 5. 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 Hypertension - Blood pressure controlled, home medications continued with dose adjustment as needed 7. Chronic hypoxic respiratory failure ?Secondary to COPD patient is on baseline home O2. Also did continue patient home regimen 8. Chronic kidney disease stage III ? Creatinine 1.38 close to patient's baseline 9. DVT prophylaxis ?Lovenox pending normalization of INR to within a therapeutic range Time spent in the patient's overall evaluation,decision-making process, review of diagnostic data, adjustment of management, discussion with other providers, nursing nursing and ancillary staff involved in patient's care documentation, 50 Minutes Charges/Coding Visit Charges Inpatient E&M: 06985 [facility] L3
[2023-11-03] MEDS: Ceftriaxone 1 GM/50 ML BAG IV (10:30)
[2023-11-03] MEDS: Furosemide 40 MG/4 ML Vial IV ×2 (10:32→16:38)
[2023-11-03] MEDS: Lisinopril 5 MG Tablet PO (10:32)
[2023-11-03] MEDS: Carvedilol 6.25 MG Tablet PO ×2 (10:32→19:48)
--- NOTE | 2023-11-03 18:05 | CASEMGMT ---
RN?CM?SPRING COILING MACHINE SETTER?CM?to room to meet with patient for initial transition planning/care coordination?assessment.?RN?CM?introduced self and role at [facility].? Pt voices understanding and consents to?assessment?at this time.? Pt resting in bed in no distress at this time.? Pt is A/O at this time and answers all questions appropriately.?? Care providers, pharmacy, and demographics verified/updated at this time. PCP: Dr Chester Specialists: Dr Bianka Waterman-[facility] Pulmonology. Pt states he also sees a [facility] restrooms or lounges maid, but does not remember their name. [facility]erred [facility]acy: [facility] Insurance: MCR A only. Pt states his daughter is in the process of getting SATISH for him. Prescription Benefit:?none at this time LNOK: , Tiffani. Daughter, Cheryl. Pt has 3 other adult children. Living Arrangements: Lives w/his and dtr, Cheryl, in one-story condo w/a threshold step to enter. Pt is indep w/ADL's and manages his medications, although his daughter does like to review them. Dtr does most of the cooking and cleaning. Transportation:?Pt states drives self and states no transportation concerns at this time.? and dtr both drive also. DME: ? States has the following DME:?shower stool, grab bars, medical alert, nebulizer, pulse ox. Pt has O2 through [facility] @ 5 l/m (verified). He has a concentrator and portable o2 tank and family can bring in portable tank @ discharge. Pt states he could use a hospital bed, but he states he may want to wait until he has SATISH. He asks for MARIA INES LOPES to talk w/his daughter about this. Pt states no need for further DME at this time.? HHC/SNF: No hx of SNF and he does not think he has had HHC in the past. Discussed HHC, but pt states he is not homebound and does not anticipate he will be homebound once returning home. Palliative Care: Discussed palliative w/pt and he is agreeable w/referral. He asked MARIA INES LOPES to talk w/his dtr about this also. CCN/Pt Link: Pt also is interested in these and asked MARIA INES LOPES to talk w/dtr. Pt wishes to return home and states has no concerns with going home at time of discharge.? Pt voices no further concerns/needs at this time.? Advised pt to ask for?CM?if any further questions/concerns/needs arise.? Voices understanding. MARIA INES LOPES placed call and spoke w/dtr, Cheryl, about hospital bed, palliative care, CCN, and Pt link. Questions answered. Cheryl is agreeable to Palliative referral and also referrals to CCN and Pt Link. Discussed w/Cheryl about pt interested in a hospital bed. She also states thinks pt would really benefit from this. She states pt does qualify for Passport services and she would like to wait and f/u with CM/Direction home re: hospital bed. Cheryl denied having any further questions/concerns/needs. Order received for Palliative referral and sent to [facility] via e-mail. Orders also placed for CCN and Pt link. PLAN:??Home w/family support and discharge plans in place. Follow for any increase in home O2. Palliative referral made CCN and Pt Link referral Ame REILLYN?RN?CM
[2023-11-04] VITALS (15 sets, daily range): BP systolic 125–146; BP diastolic 51–79; PULSE 70–94; RESP 14–20; TEMP 35.8–37; O2SAT 92–98; BMI 24.0
[2023-11-04] MEDS: Albuterol 2.5 MG/3 ML VIAL.NEB. INHALATION ×6 (03:28→23:25)
[2023-11-04] MEDS: 0.9% Saline Lock 10 ML Syringe IV ×2 (05:28→10:21)
--- NOTE | 2023-11-04 08:13 | PCM.PN.HOSP ---
Reason for Visit Reason for Visit: Diagnoses Heart failure, unspecified (11/02/23) Pneumonia, unspecified organism (11/02/23) Chronic obstructive pulmonary disease with (acute) exacerbation (11/02/23) Subjective Subjective Patient seen clinical condition continues to improve however patient remains dyspneic at rest plan is to continue treatment for additional day Objective Data Objective Data Vital Signs: Vital Signs Temp Pulse Resp BP Pulse Ox O2 Del Method O2 Flow Rate 96.5 F L 78 18 125/51 H 92 Nasal Cannula 5 11/04/23 04:35 11/04/23 07:20 11/04/23 07:20 11/04/23 04:35 11/04/23 07:53 11/04/23 07:53 11/04/23 07:53 Oxygen Flow Rate (L/min) 5 Oxygen Delivery Method Nasal Cannula Weight: 78.2 kg Body Mass Index (BMI) 24.0 Intake & Output: Intake and Output for Last 24 Hours 11/02/23 11/03/23 11/04/23 23:59 23:59 23:59 Intake Total 305 / 305 1265 / 1265 120 / 120 Output Total 500 / 500 250 / 250 Balance 305 / 305 765 / 765 -130 / -130 Lab / Micro Data 11/03/23 03:45 11/03/23 03:45 Micro: Microbiology 11/02/23 20:00 Sputum, Expectorated/Coughed Gram Stain - Final 11/02/23 20:00 Sputum, Expectorated/Coughed Respiratory Culture - Preliminary Appears to be normal respiratory blossom. Further studies to follow. 11/02/23 16:17 Sputum, Expectorated/Coughed Gram Stain - Final 11/02/23 16:17 Sputum, Expectorated/Coughed Respiratory Culture - Preliminary Appears to be normal respiratory blossom. Further studies to follow. 11/03/23 05:45 Urine, Clean Catch Legionella Antigen - Final 11/03/23 05:45 Urine, Clean Catch Streptococcus pneumoniae Antigen (M - Final 11/02/23 16:09 Mucosa - Nose SARS-CoV-2, Influenza & RSV (PCR) - Final Radiography Diagnostic Testing: Radiology Impression Echocardiogram 11/02/23 20:23 Interpretation Summary Normal LV size. Left ventricular systolic function is lower limits of normal. The estimated ejection fraction is 50 %. D shaped septum in diastole. Pulmonary artery systolic pressure is 53 mmHg. Mild pulmonary hypertension. Ordering Physician: Janis Centeno Referring Physician: Daniel Chester Performed By: Bindu Pradhan RDCS, RVT Physical Exam Narrative GENERAL: cooperative, dyspneic at rest HEENT: Atraumatic; normocephalic EYES; Anicteric, Normal Conjunctiva NECK; supple, normal thyroid, RESPIRATORY: Diminished to auscultation CARDIOVASCULAR: Regular S1 S2, GI: soft, normoactive bowel sounds, : No Renal angle tenderness; EXTREMITIES: No edema, no clubbing, MUSCULOSKELETAL: no muscle wasting NEURO: Awake; no lateralizing signs. SKIN: No Rash PSYCH; Flat affect Assessment & Plan Assessment/Plan (1) CHF exacerbation: (2) COPD exacerbation: (3) Pneumonia: PLAN: Plan Patient is an 83-year-old gentleman with multiple comorbidities including chronic hypoxic respiratory failure on baseline home oxygen 5 L at rest who presented with progressive shortness of breath. An assessment of acute hypoxic on chronic respiratory failure made admitted to a monitored bed for further management 1. Acute on chronic hypoxic respiratory failure ? Due to combination of decompensated congestive heart failure as well as COPD with acute exacerbation admitted to a monitored bed with treatment of the underlying etiology ? 11/04/2023; patient remains on high flow oxygen 5 L flow per minute. 2. Acute on chronic congestive heart failure with preserved ejection fraction ? Echo from 07/31/2022 demonstrated EF of 55%. Repeat echo ordered patient placed on diuretics, strict input and output, daily weight as well as fluid restriction and low-sodium diet 3. COPD with acute exacerbation ? Managed with bronchodilator treatment supplemental oxygen systemic steroid as well as antibiotic therapy 4. Paroxysmal A. fib ? Rate controlled, on systemic anticoagulation with Coumadin INR is therapeutic 5. 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 Hypertension - Blood pressure controlled, home medications continued with dose adjustment as needed 7. Chronic hypoxic respiratory failure ?Secondary to COPD patient is on baseline home O2. Also did continue patient home regimen 8. Chronic kidney disease stage III ? Creatinine 1.38 close to patient's baseline 9. DVT prophylaxis ?Lovenox pending normalization of INR to within a therapeutic range Time spent in the patient's overall evaluation,decision-making process, review of diagnostic data, adjustment of management, discussion with other providers, nursing nursing and ancillary staff involved in patient's care documentation, 35 Minutes Charges/Coding Visit Charges Inpatient E&M: 82578 Subs Hosp L2
[2023-11-04] MEDS: Azithromycin 500 MG in Dextrose 5%-Water (250mL Bag) 250 ML 250 MG IV (10:11)
[2023-11-04] MEDS: Lisinopril 5 MG Tablet PO (10:13)
[2023-11-04] MEDS: Carvedilol 6.25 MG Tablet PO ×2 (10:14→21:30)
[2023-11-04] MEDS: Ceftriaxone 1 GM/50 ML BAG IV (11:41)
[2023-11-04] MEDS: Furosemide 40 MG/4 ML Vial IV ×2 (12:07→18:06)
[2023-11-04 12:12] LABS: Absolute Lymphocyte Count 0.23 X10^3/uL (0.83-4.51); Absolute Neutrophil Count 8.7 X10^3/uL (2.0-7.7); Basophil# 0.01 X10^3/uL; Basophil% 0.1 % (0-1); Hematocrit 35.3 % (40-54); Hemoglobin 11.7 g/dL (13.0-16.5); Lymphocyte # 0.23 X10^3/ul (0.83-4.51); Lymphocyte % 2.4 % (19-41); Mean Corp Hgb Conc 33.1 g/dL (32-36); Mean Corpuscular Hgb 32.6 pg (27.0-32.0); Mean Corpuscular Volume 98.3 fL (80-94); Mean Platelet Vol. 10.8 fl (6.2-12.0); Monocyte# 0.56 X10^3/uL; Monocyte% 5.8 % (0-10); NRBC Flagged by Analyzer 0 % (0-5); Neutrophil # 8.72 X10^3/uL (2.7-7.7); Neutrophil % 90.9 % (47-70); POSITIVE DIFFERENTIAL YES; Platelet Count 113 K/mm3 (150-450); RBC Distribution Width CV 14.9 % (11.6-14.6); RBC Distribution Width SD 54.2 fl (35.1-43.9); Red Blood Count 3.59 M/mm3 (4.6-6.2); White Blood Count 9.6 K/mm3 (4.4-11.0)
[2023-11-04 12:14] LABS: Differential Indicated SCAN CRITERIA MET
[2023-11-04 12:23] LABS: International Normalized Ratio 2.1; Prothrombin Time (Protime)PT. 24.2 SECONDS (11.7-14.9)
[2023-11-04 12:28] LABS: Anion Gap 6 (5-15); BUN 55 mg/dL (7-18); Calcium,Total 8.5 mg/dL (8.5-10.1); Chloride 102 mmol/L (98-107); Creatinine, Serum 1.28 mg/dL (0.70-1.30); EST Glomerular Filtration Rate 57 mL/min (>60); Est Glom Filt Rate - Afr Amer 69 mL/min (>60); Estimated Creatinine Clearance 44.94 ml/min; Glucose 194 mg/dL (74-106); Magnesium 2.4 mg/dL (1.6-2.6); Potassium 4.2 mmol/L (3.5-5.1); Sodium Level 139 mmol/L (136-145)
[2023-11-05] VITALS (11 sets, daily range): BP systolic 122–152; BP diastolic 56–67; PULSE 71–98; RESP 17–22; TEMP 36.3–36.7; O2SAT 96–98; BMI 23.9
[2023-11-05] MEDS: Albuterol 2.5 MG/3 ML VIAL.NEB. INHALATION ×5 (04:59→23:24)
[2023-11-05 06:54] LABS: Absolute Neutrophil Count 8.5 X10^3/uL (2.0-7.7); Basophil# 0.01 X10^3/uL; Basophil% 0.1 % (0-1); Hematocrit 34.4 % (40-54); Hemoglobin 11.1 g/dL (13.0-16.5); Lymphocyte % 3.2 % (19-41); Mean Corp Hgb Conc 32.3 g/dL (32-36); Mean Corpuscular Hgb 31.9 pg (27.0-32.0); Mean Corpuscular Volume 98.9 fL (80-94); Mean Platelet Vol. 11.1 fl (6.2-12.0); Monocyte% 4.3 % (0-10); NRBC Flagged by Analyzer 0 % (0-5); Neutrophil # 8.47 X10^3/uL (2.7-7.7); Neutrophil % 91.3 % (47-70); POSITIVE DIFFERENTIAL YES; Platelet Count 116 K/mm3 (150-450); RBC Distribution Width CV 14.7 % (11.6-14.6); RBC Distribution Width SD 53.8 fl (35.1-43.9); Red Blood Count 3.48 M/mm3 (4.6-6.2); White Blood Count 9.3 K/mm3 (4.4-11.0)
[2023-11-05 07:00] LABS: Prothrombin Time (Protime)PT. 22.8 SECONDS (11.7-14.9)
[2023-11-05 07:13] LABS: Differential Indicated SCAN CRITERIA MET
[2023-11-05 07:17] LABS: Differential Comment SCANNED
--- NOTE | 2023-11-05 07:38 | PN.HOSP_ITS ---
Reason for Visit Reason for Visit: Diagnoses Heart failure, unspecified (11/02/23) Pneumonia, unspecified organism (11/02/23) Chronic obstructive pulmonary disease with (acute) exacerbation (11/02/23) Subjective Subjective Patient seen breathing still remains labored at rest. Plan is to continue treatment for 1 additional day Objective Data Objective Data Vital Signs: Vital Signs Temp Pulse Resp BP Pulse Ox O2 Del Method O2 Flow Rate 97.7 F L 71 18 125/57 H 98 Nasal Cannula 5 11/05/23 03:32 11/05/23 05:00 11/05/23 05:00 11/05/23 03:32 11/05/23 05:00 11/05/23 05:00 11/05/23 05:00 Oxygen Flow Rate (L/min) 5 Oxygen Delivery Method Nasal Cannula Weight: 77.8 kg Body Mass Index (BMI) 23.9 Intake & Output: Intake and Output for Last 24 Hours 11/03/23 11/04/23 11/05/23 23:59 23:59 23:59 Intake Total 1265 / 1265 665 / 665 Output Total 500 / 500 1090 / 1090 Balance 765 / 765 -425 / -425 Lab / Micro Data 11/05/23 06:11 11/04/23 12:00 Labs: Laboratory Results - last 24 hr 11/04/23 12:00: WBC 9.6, RBC 3.59 L, Hgb 11.7 L, Hct 35.3 L, MCV 98.3 H, MCH 32.6 H, MCHC 33.1, RDW Std Deviation 54.2 H, RDW Coeff of Tal 14.9 H, Plt Count 113 L, MPV 10.8, Immature Gran % (Auto) 0.800, Neut % (Auto) 90.9 H, Lymph % (Auto) 2.4 L, [place] % (Auto) 5.8, Eos % (Auto) 0.0, Baso % (Auto) 0.1, Absolute Neuts (auto) 8.7 H, Absolute Lymphs (auto) 0.23 L, Nucleated RBC % 0, PT 24.2 H, INR 2.1, Sodium 139, Potassium 4.2, Chloride 102, Carbon Dioxide 31.0, Anion Gap 6, BUN 55 H, Creatinine 1.28, Estim Creat Clear Calc 44.94, Est GFR (MDRD) Af Amer 69, Est GFR (MDRD) Non-Af 57 L, BUN/Creatinine Ratio 43.0 H, Glucose 194 H, Calcium 8.5, Magnesium 2.4 11/05/23 06:11: WBC 9.3, RBC 3.48 L, Hgb 11.1 L, Hct 34.4 L, MCV 98.9 H, MCH 31.9, MCHC 32.3, RDW Std Deviation 53.8 H, RDW Coeff of Tal 14.7 H, Plt Count 116 L, MPV 11.1, Immature Gran % (Auto) 1.100 H, Neut % (Auto) 91.3 H, Lymph % (Auto) 3.2 L, [place] % (Auto) 4.3, Eos % (Auto) 0.0, Baso % (Auto) 0.1, Absolute Neuts (auto) 8.5 H, Absolute Lymphs (auto) 0.30 L, Nucleated RBC % 0, Differential Comment SCANNED, PT 22.8 H, INR 2.0 Micro: Microbiology 11/02/23 20:00 Sputum, Expectorated/Coughed Gram Stain - Final 11/02/23 20:00 Sputum, Expectorated/Coughed Respiratory Culture - Preliminary Appears to be normal respiratory blossom. Further studies to follow. 11/02/23 16:17 Sputum, Expectorated/Coughed Gram Stain - Final 11/02/23 16:17 Sputum, Expectorated/Coughed Respiratory Culture - Preliminary Appears to be normal respiratory blossom. Further studies to follow. 11/03/23 05:45 Urine, Clean Catch Legionella Antigen - Final 11/03/23 05:45 Urine, Clean Catch Streptococcus pneumoniae Antigen (M - Final 11/02/23 16:09 Mucosa - Nose SARS-CoV-2, Influenza & RSV (PCR) - Final Physical Exam Narrative GENERAL: cooperative, dyspneic at rest HEENT: Atraumatic; normocephalic EYES; Anicteric, Normal Conjunctiva NECK; supple, normal thyroid, RESPIRATORY: Diminished to auscultation CARDIOVASCULAR: Regular S1 S2, GI: soft, normoactive bowel sounds, : No Renal angle tenderness; EXTREMITIES: No edema, no clubbing, MUSCULOSKELETAL: no muscle wasting NEURO: Awake; no lateralizing signs. SKIN: No Rash PSYCH; Flat affect Assessment & Plan Assessment/Plan (1) CHF exacerbation: (2) COPD exacerbation: (3) Pneumonia: PLAN: Plan Patient is an 83-year-old gentleman with multiple comorbidities including chronic hypoxic respiratory failure on baseline home oxygen 5 L at rest who presented with progressive shortness of breath. An assessment of acute hypoxic on chronic respiratory failure made admitted to a monitored bed for further management 1. Acute on chronic hypoxic respiratory failure ? Due to combination of decompensated congestive heart failure as well as COPD with acute exacerbation admitted to a monitored bed with treatment of the underlying etiology ? 11/04/2023; patient remains on high flow oxygen 5 L flow per minute. ? 11/05/2023; patient remains dyspneic at rest and currently on 5 L flow per minute. 2. Acute on chronic congestive heart failure with preserved ejection fraction ? Echo from 07/31/2022 demonstrated EF of 55%. Repeat echo ordered patient placed on diuretics, strict input and output, daily weight as well as fluid restriction and low-sodium diet 3. COPD with acute exacerbation ? Managed with bronchodilator treatment supplemental oxygen systemic steroid as well as antibiotic therapy 4. Paroxysmal A. fib ? Rate controlled, on systemic anticoagulation with Coumadin INR is therapeutic 5. 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 Hypertension - Blood pressure controlled, home medications continued with dose adjustment as needed 7. Chronic hypoxic respiratory failure ?Secondary to COPD patient is on baseline home O2. Also did continue patient home regimen 8. Chronic kidney disease stage III ? Creatinine 1.38 close to patient's baseline 9. DVT prophylaxis ?Lovenox pending normalization of INR to within a therapeutic range 10. Physical deconditioning - Requested for PT OT eval and criminal justice social worker to assist with discharge planning Time spent in the patient's overall evaluation,decision-making process, review of diagnostic data, adjustment of management, discussion with other providers, nursing nursing and ancillary staff involved in patient's care documentation, 35 Minutes Charges/Coding Visit Charges Inpatient E&M: 32475 Subs Hosp L2
[2023-11-05] MEDS: Furosemide 40 MG/4 ML Vial IV ×2 (09:50→17:19)
[2023-11-05] MEDS: Carvedilol 6.25 MG Tablet PO ×2 (09:50→21:52)
[2023-11-05] MEDS: Lisinopril 5 MG Tablet PO (09:50)
[2023-11-05] MEDS: Ceftriaxone 1 GM/50 ML BAG IV (10:00)
[2023-11-05 10:38] LABS: Anion Gap 7 (5-15); BUN 52 mg/dL (7-18); BUN/Creat Ratio 44.1 RATIO (10-20); Calcium,Total 8.4 mg/dL (8.5-10.1); Chloride 102 mmol/L (98-107); Creatinine, Serum 1.18 mg/dL (0.70-1.30); EST Glomerular Filtration Rate 62 mL/min (>60); Est Glom Filt Rate - Afr Amer 75 mL/min (>60); Estimated Creatinine Clearance 48.75 ml/min; Glucose 136 mg/dL (74-106); Magnesium 2.5 mg/dL (1.6-2.6); Phosphorus 4.3 mg/dL (2.5-4.9); Potassium 4.2 mmol/L (3.5-5.1); Sodium Level 142 mmol/L (136-145)
[2023-11-05] MEDS: Azithromycin 500 MG in Dextrose 5%-Water (250mL Bag) 250 ML 250 MG IV (10:46)
[2023-11-06] VITALS (14 sets, daily range): BP systolic 121–155; BP diastolic 56–82; PULSE 70–97; RESP 16–22; TEMP 36.4–36.9; O2SAT 94–100; BMI 24.9
[2023-11-06] MEDS: Albuterol 2.5 MG/3 ML VIAL.NEB. INHALATION ×6 (03:58→23:27)
[2023-11-06] MEDS: 0.9% Saline Lock 10 ML Syringe IV ×3 (05:23→13:23)
[2023-11-06 06:44] LABS: Absolute Lymphocyte Count 0.32 X10^3/uL (0.83-4.51); Absolute Neutrophil Count 8.5 X10^3/uL (2.0-7.7); Basophil# 0.01 X10^3/uL; Basophil% 0.1 % (0-1); Hematocrit 36.4 % (40-54); Hemoglobin 11.4 g/dL (13.0-16.5); Lymphocyte # 0.32 X10^3/ul (0.83-4.51); Lymphocyte % 3.4 % (19-41); Mean Corp Hgb Conc 31.3 g/dL (32-36); Mean Corpuscular Hgb 31.6 pg (27.0-32.0); Mean Corpuscular Volume 100.8 fL (80-94); Mean Platelet Vol. 10.8 fl (6.2-12.0); Monocyte% 6.3 % (0-10); NRBC Flagged by Analyzer 0 % (0-5); Neutrophil # 8.46 X10^3/uL (2.7-7.7); Neutrophil % 89.5 % (47-70); POSITIVE DIFFERENTIAL YES; Platelet Count 125 K/mm3 (150-450); RBC Distribution Width CV 14.5 % (11.6-14.6); Red Blood Count 3.61 M/mm3 (4.6-6.2); White Blood Count 9.5 K/mm3 (4.4-11.0)
[2023-11-06 06:48] LABS: Differential Indicated SCAN CRITERIA MET
[2023-11-06 06:51] LABS: International Normalized Ratio 1.7; Prothrombin Time (Protime)PT. 20.3 SECONDS (11.7-14.9)
[2023-11-06 07:10] LABS: Anion Gap 4 (5-15); BUN 51 mg/dL (7-18); Calcium,Total 8.5 mg/dL (8.5-10.1); Chloride 100 mmol/L (98-107); Creatinine, Serum 1.16 mg/dL (0.70-1.30); EST Glomerular Filtration Rate 64 mL/min (>60); Est Glom Filt Rate - Afr Amer 77 mL/min (>60); Estimated Creatinine Clearance 49.59 ml/min; Glucose 125 mg/dL (74-106); Potassium 4.9 mmol/L (3.5-5.1); Sodium Level 141 mmol/L (136-145)
[2023-11-06 07:23] LABS: Differential Comment SCANNED
[2023-11-06] MEDS: Lisinopril 5 MG Tablet PO (09:19)
[2023-11-06] MEDS: Carvedilol 6.25 MG Tablet PO ×2 (09:19→18:09)
[2023-11-06] MEDS: Furosemide 40 MG/4 ML Vial IV (09:19)
--- NOTE | 2023-11-06 09:24 | NURSING ---
Pt refused IV ATB today. Pt states, I have other methods to deal with my problem . Education provided.
--- NOTE | 2023-11-06 14:50 | CASEMGMT ---
MARIA INES LOPES NOTE: E-mail received from Luis @ [facility], they arranged mtg for today, Monday 11/06, @ 4 PM, per dtr's request. Ame BECKMAN RN, CM
[2023-11-06] MEDS: Furosemide 40 MG Tablet PO (18:09)
--- NOTE | 2023-11-06 18:21 | PN.HOSP_ITS ---
Reason for Visit Reason for Visit: Diagnoses Heart failure, unspecified (11/02/23) Pneumonia, unspecified organism (11/02/23) Chronic obstructive pulmonary disease with (acute) exacerbation (11/02/23) Subjective Subjective Patient slowly feeling better, given improvement patient and daughter, Cheryl, refused further IV antibiotics and would like to treat him holistically. Discussed Moraxella and importance of finishing course of IV antibiotics and not treating appropriately or long enough could result in worsening respiratory status, bacteria getting to the blood and even and understanding verbalized by both patient and daughter and they would like to not take the antibiotics even after discussing risks and benefits. They are agreeable to continuing Lasix and steroids. Objective Data Objective Data Vital Signs: Vital Signs Temp Pulse Resp BP Pulse Ox O2 Del Method O2 Flow Rate 97.6 F L 71 18 130/60 H 100 Nasal Cannula 5 11/06/23 17:57 11/06/23 17:57 11/06/23 17:57 11/06/23 17:57 11/06/23 17:57 11/06/23 17:57 11/06/23 17:57 Oxygen Flow Rate (L/min) 5 Oxygen Delivery Method Nasal Cannula Weight: 81 kg Body Mass Index (BMI) 24.9 Intake & Output: Intake and Output for Last 24 Hours 11/04/23 11/05/23 11/06/23 23:59 23:59 23:59 Intake Total 665 / 665 1085 / 1085 600 / 600 Output Total 1090 / 1090 Balance -425 / -425 1085 / 1085 600 / 600 Lab / Micro Data 11/06/23 05:50 11/06/23 05:50 Labs: Laboratory Results - last 24 hr 11/06/23 05:50: WBC 9.5, RBC 3.61 L, Hgb 11.4 L, Hct 36.4 L, MCV 100.8 H, MCH 31.6, MCHC 31.3 L, RDW Std Deviation 54.0 H, RDW Coeff of Tal 14.5, Plt Count 125 L, MPV 10.8, Immature Gran % (Auto) 0.700, Neut % (Auto) 89.5 H, Lymph % (Auto) 3.4 L, [place] % (Auto) 6.3, Eos % (Auto) 0.0, Baso % (Auto) 0.1, Absolute Neuts (auto) 8.5 H, Absolute Lymphs (auto) 0.32 L, Nucleated RBC % 0, Differential Comment SCANNED, PT 20.3 H, INR 1.7, Sodium 141, Potassium 4.9, Chloride 100, Carbon Dioxide 37.0 H, Anion Gap 4 L, BUN 51 H, Creatinine 1.16, Estim Creat Clear Calc 49.59, Est GFR (MDRD) Af Amer 77, Est GFR (MDRD) Non-Af 64, BUN/Creatinine Ratio 44.0 H, Glucose 125 H, Calcium 8.5 Micro: Microbiology 11/02/23 20:00 Sputum, Expectorated/Coughed Gram Stain - Final 11/02/23 20:00 Sputum, Expectorated/Coughed Respiratory Culture - Final Moraxella Catarrhalis 11/02/23 16:17 Sputum, Expectorated/Coughed Gram Stain - Final 11/02/23 16:17 Sputum, Expectorated/Coughed Respiratory Culture - Final 11/03/23 05:45 Urine, Clean Catch Legionella Antigen - Final 11/03/23 05:45 Urine, Clean Catch Streptococcus pneumoniae Antigen (M - Final 11/02/23 16:09 Mucosa - Nose SARS-CoV-2, Influenza & RSV (PCR) - Final Physical Exam Narrative General: Alert, no apparent distress HEENT: Atraumatic, normocephalic Eyes: Anicteric, normal conjunctiva, extraocular movements grossly intact Neck: Supple Respiratory: Does have some increased respiratory effort and breath sounds diminished at the bases Cardiovascular: Regular rate GI: Soft, nontender, nondistended Extremities: No edema Musculoskeletal: Moving all extremities Neuro: No overt focal neurological deficits Skin: No rashes appreciated Psych: Cooperative Assessment & Plan Assessment/Plan (1) CHF exacerbation: (2) COPD exacerbation: (3) Pneumonia: PLAN: Plan Patient is an 83-year-old gentleman with multiple comorbidities including chronic hypoxic respiratory failure on baseline home oxygen 5 L at rest who presented with progressive shortness of breath. An assessment of acute hypoxic on chronic respiratory failure made admitted to a monitored bed for further management 1. Acute on chronic hypoxic respiratory failure with sputum positive for Mor axella ? Due to combination of decompensated congestive heart failure as well as COPD with acute exacerbation admitted to a monitored bed with treatment of the underlying etiology ? 11/04/2023; patient remains on high flow oxygen 5 L flow per minute. ? 11/05/2023; patient remains dyspneic at rest and currently on 5 L flow per minute. -11/06: Patient refusing further antibiotics as above, will transition Lasix to oral and methylprednisolone to oral prednisone, if continues to improve patient can DC tomorrow. Also daughter and patient inquiring about hospital bed, do feel given his heart failure and poor respiratory status that he would benefit from the ability to have elevated head of bed and use hospital bed at home. 2. Acute on chronic congestive heart failure with preserved ejection fraction ? Echo from 07/31/2022 demonstrated EF of 55%. Repeat echo ordered patient placed on diuretics, strict input and output, daily weight as well as fluid restriction and low-sodium diet -11/06: Repeat echo with PASP of 53, D-shaped septum in diastole and EF of 50% with LV lower limits of normal, de-escalating Lasix to oral. It is documented the patient gained weight however clinically this does not appear to be the case, no peripheral swelling and respiratory status improving, presently on home O2 3. COPD with acute exacerbation ? Managed with bronchodilator treatment supplemental oxygen systemic steroid as well as antibiotic therapy -11/06: Patient refusing antibiotics as above but discussed that I would be keeping this on his medication list as it is encouraged that he continue it 4. Paroxysmal A. fib ? Rate controlled, on systemic anticoagulation with Coumadin INR is therapeutic -11/06: Patient had Coumadin held as there was concern for possible hemoptysis on admission, resume Coumadin, received 6 mg today and will continue 4 mg daily thereafter 5. 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 Hypertension - Blood pressure controlled, home medications continued with dose adjustment as needed 7. Chronic hypoxic respiratory failure ?Secondary to COPD patient is on baseline home O2. Also did continue patient home regimen 8. Chronic kidney disease stage III ? Creatinine 1.38 close to patient's baseline -11/06: Stable 9. DVT prophylaxis ? SCDs pending normalization of INR to within a therapeutic range 10. Physical deconditioning - Requested for PT OT eval and social service agency director to assist with discharge planning Time spent in the patient's overall evaluation,decision-making process, review of diagnostic data, adjustment of management, discussion with other providers, nursing nursing and ancillary staff involved in patient's care documentation, 35 Minutes Capacity Legal Liquefaction Supervisor Reflex Medical hold order details:: IF a medical hold is selected below, a suggested order for a MEDICAL HOLD will reflex upon signing the document. Next of kin: [place] law dictates a PRIORITY LIST for identifying legal decision-maker/legal next of kin in the following order (LNOK): 1st: The patient?s legal guardian, if any 2nd: The patient's spouse (if status is questionable, consult Risk Management) 3rd: The patient?s adult child(julienne) (majority, if multiple children) 4th: The patient?s parents 5th: The patient?s adult siblings (majority, if multiple children siblings) Charges/Coding Visit Charges Inpatient E&M: 82704 Subs Hosp L2
[2023-11-07] VITALS (15 sets, daily range): BP systolic 121–156; BP diastolic 56–83; PULSE 69–91; RESP 16–20; TEMP 36.4–36.9; O2SAT 86–98; BMI 24.4
[2023-11-07] MEDS: Albuterol 2.5 MG/3 ML VIAL.NEB. INHALATION ×4 (03:37→22:01)
[2023-11-07 08:59] LABS: International Normalized Ratio 2.2; Prothrombin Time (Protime)PT. 24.7 SECONDS (11.7-14.9)
[2023-11-07] MEDS: Furosemide 40 MG Tablet PO ×2 (10:05→16:47)
[2023-11-07] MEDS: Carvedilol 6.25 MG Tablet PO ×2 (10:05→21:13)
[2023-11-07] MEDS: predniSONE 20 MG Tablet 60 MG PO (10:05)
[2023-11-07] MEDS: Lisinopril 5 MG Tablet PO (10:06)
[2023-11-07 10:54] LABS: Absolute Lymphocyte Count 0.42 X10^3/uL (0.83-4.51); Absolute Neutrophil Count 9.2 X10^3/uL (2.0-7.7); Basophil# 0.02 X10^3/uL; Basophil% 0.2 % (0-1); Hematocrit 38.4 % (40-54); Hemoglobin 12.1 g/dL (13.0-16.5); Lymphocyte # 0.42 X10^3/ul (0.83-4.51); Lymphocyte % 3.9 % (19-41); Mean Corp Hgb Conc 31.5 g/dL (32-36); Mean Corpuscular Hgb 32.1 pg (27.0-32.0); Mean Corpuscular Volume 101.9 fL (80-94); Mean Platelet Vol. 10.5 fl (6.2-12.0); Monocyte# 0.92 X10^3/uL; Monocyte% 8.6 % (0-10); NRBC Flagged by Analyzer 0 % (0-5); Neutrophil # 9.18 X10^3/uL (2.7-7.7); Neutrophil % 86.4 % (47-70); POSITIVE DIFFERENTIAL YES; Platelet Count 131 K/mm3 (150-450); RBC Distribution Width CV 14.6 % (11.6-14.6); RBC Distribution Width SD 55.2 fl (35.1-43.9); Red Blood Count 3.77 M/mm3 (4.6-6.2); White Blood Count 10.6 K/mm3 (4.4-11.0)
[2023-11-07 11:03] LABS: Anion Gap 2 (5-15); BUN 50 mg/dL (7-18); BUN/Creat Ratio 47.2 RATIO (10-20); Chloride 99 mmol/L (98-107); Creatinine, Serum 1.06 mg/dL (0.70-1.30); EST Glomerular Filtration Rate 71 mL/min (>60); Est Glom Filt Rate - Afr Amer 85 mL/min (>60); Estimated Creatinine Clearance 54.26 ml/min; Glucose 93 mg/dL (74-106); Potassium 4.6 mmol/L (3.5-5.1); Sodium Level 141 mmol/L (136-145)
[2023-11-07 11:06] LABS: Differential Indicated SCAN CRITERIA MET
[2023-11-07 11:46] LABS: Differential Comment SCANNED
--- NOTE | 2023-11-07 13:45 | CASEMGMT ---
RN CM updated that daughter is requesting hospital bed at discharge. RN CM in to discuss needs at discharge. Patient asked RN CM to call daughter Cheryl to discuss discharge planning. RN CM called daughter. Cheryl states she would like hospital bed for at home and prefers [facility]. RN CM updated daughter that it may be a few days till hospital bed is delivered, daughter agreeable. Daughter had no further questions or concerns at this time. RN MOSES sent referral to [facility] via [facility] for hospital bed. Will monitor for increase in home oxygen at discharge. CM to continue to follow this patient and plan for a safe discharge.
--- NOTE | 2023-11-07 14:22 | PN.HOSP_ITS ---
Reason for Visit Reason for Visit: Diagnoses Heart failure, unspecified (11/02/23) Pneumonia, unspecified organism (11/02/23) Chronic obstructive pulmonary disease with (acute) exacerbation (11/02/23) Subjective Subjective Patient very short of breath when up walking, feeling somewhat better from a breathing standpoint while patient is sitting in bed but does get short of breath on exertion he did desaturate Objective Data Objective Data Vital Signs: Vital Signs Temp Pulse Resp BP Pulse Ox O2 Del Method O2 Flow Rate 97.6 F L 78 20 H 137/67 H 93 Nasal Cannula 5 11/07/23 09:56 11/07/23 10:29 11/07/23 10:29 11/07/23 09:56 11/07/23 13:52 11/07/23 09:56 11/07/23 13:52 Oxygen Flow Rate (L/min) [ 7 AMBULATING with Oxygen #2] Oxygen Flow Rate (L/min) [ 5 AMBULATING with Oxygen #1] Oxygen Flow Rate (L/min) [At 5 REST with Oxygen] Oxygen Flow Rate (L/min) 5 Oxygen Delivery Method Nasal Cannula Weight: 79.4 kg Body Mass Index (BMI) 24.4 Intake & Output: Intake and Output for Last 24 Hours 11/05/23 11/06/23 11/07/23 23:59 23:59 23:59 Intake Total 1085 / 1085 600 / 840 240 / 240 Balance 1085 / 1085 600 / 840 240 / 240 Lab / Micro Data 11/07/23 07:35 11/07/23 07:35 Labs: Laboratory Results - last 24 hr 11/07/23 07:35: WBC 10.6, RBC 3.77 L, Hgb 12.1 L, Hct 38.4 L, MCV 101.9 H, MCH 32.1 H, MCHC 31.5 L, RDW Std Deviation 55.2 H, RDW Coeff of Tal 14.6, Plt Count 131 L, MPV 10.5, Immature Gran % (Auto) 0.900, Neut % (Auto) 86.4 H, Lymph % (Auto) 3.9 L, [place] % (Auto) 8.6, Eos % (Auto) 0.0, Baso % (Auto) 0.2, Absolute Neuts (auto) 9.2 H, Absolute Lymphs (auto) 0.42 L, Nucleated RBC % 0, Differential Comment SCANNED, PT 24.7 H, INR 2.2, Sodium 141, Potassium 4.6, Chloride 99, Carbon Dioxide 40.0 H, Anion Gap 2 L, BUN 50 H, Creatinine 1.06, Estim Creat Clear Calc 54.26, Est GFR (MDRD) Af Amer 85, Est GFR (MDRD) Non-Af 71, BUN/Creatinine Ratio 47.2 H, Glucose 93, Calcium 9.0 Micro: Microbiology 11/02/23 20:00 Sputum, Expectorated/Coughed Gram Stain - Final 11/02/23 20:00 Sputum, Expectorated/Coughed Respiratory Culture - Final Moraxella Catarrhalis 11/02/23 16:17 Sputum, Expectorated/Coughed Gram Stain - Final 11/02/23 16:17 Sputum, Expectorated/Coughed Respiratory Culture - Final 11/03/23 05:45 Urine, Clean Catch Legionella Antigen - Final 11/03/23 05:45 Urine, Clean Catch Streptococcus pneumoniae Antigen (M - Final 11/02/23 16:09 Mucosa - Nose SARS-CoV-2, Influenza & RSV (PCR) - Final Physical Exam Narrative General: Alert, no apparent distress HEENT: Atraumatic, normocephalic Eyes: Anicteric, normal conjunctiva, extraocular movements grossly intact Neck: Supple Respiratory: Somewhat improved respiratory effort Cardiovascular: Regular rate GI: Soft, nontender, nondistended Extremities: No edema Musculoskeletal: Moving all extremities Neuro: No overt focal neurological deficits Skin: No rashes appreciated Psych: Cooperative Assessment & Plan Assessment/Plan (1) CHF exacerbation: (2) COPD exacerbation: (3) Pneumonia: PLAN: Plan Patient is an 83-year-old gentleman with multiple comorbidities including chronic hypoxic respiratory failure on baseline home oxygen 5 L at rest who presented with progressive shortness of breath. An assessment of acute hypoxic on chronic respiratory failure made admitted to a monitored bed for further management 1. Acute on chronic hypoxic respiratory failure with sputum positive for Moraxella ? Due to combination of decompensated congestive heart failure as well as COPD with acute exacerbation admitted to a monitored bed with treatment of the underlying etiology ? 11/04/2023; patient remains on high flow oxygen 5 L flow per minute. ? 11/05/2023; patient remains dyspneic at rest and currently on 5 L flow per minute. -11/06: Patient refusing further antibiotics as above, will transition Lasix to oral and methylprednisolone to oral prednisone, if continues to improve patient can DC tomorrow. Also daughter and patient inquiring about hospital bed, do feel given his heart failure and poor respiratory status that he would benefit from the ability to have elevated head of bed and use hospital bed at home. -11/07: Patient was on albuterol aerosols but added ipratropium, continue increased dose of Lasix and prednisone, will attempt walk test tomorrow, possible DC tomorrow if patient doing better on ambulation, suspect he will with addition of ipratropium 2. Acute on chronic congestive heart failure with preserved ejection fraction ? Echo from 07/31/2022 demonstrated EF of 55%. Repeat echo ordered patient placed on diuretics, strict input and output, daily weight as well as fluid restriction and low-sodium diet -11/06: Repeat echo with PASP of 53, D-shaped septum in diastole and EF of 50% with LV lower limits of normal, de-escalating Lasix to oral. It is documented the patient gained weight however clinically this does not appear to be the case, no peripheral swelling and respiratory status improving, presently on home O2 -11/07: Continue present management with Lasix 40 mg twice daily, continue to monitor weight and volume status 3. COPD with acute exacerbation ? Managed with bronchodilator treatment supplemental oxygen systemic steroid as well as antibiotic therapy -11/06: Patient refusing antibiotics as above but discussed that I would be keeping this on his medication list as it is encouraged that he continue it -11/07: Nebs, steroids 4. Paroxysmal A. fib ? Rate controlled, on systemic anticoagulation with Coumadin INR is therapeutic -11/06: Patient had Coumadin held as there was concern for possible hemoptysis on admission, resume Coumadin, received 6 mg today and will continue 4 mg daily thereafter -11/07: INR 2.2 today, continue present management 5. 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 Hypertension - Blood pressure controlled, home medications continued with dose adjustment as needed 7. Chronic hypoxic respiratory failure ?Secondary to COPD patient is on baseline home O2. Also did continue patient home regimen -11/07: Did require 7 L of O2 on ambulation to maintain 91%, meds adjusted as above, will have walk trial again tomorrow 8. Chronic kidney disease stage III ? Creatinine 1.38 close to patient's baseline -11/06: Stable 9. DVT prophylaxis ? SCDs pending normalization of INR to within a therapeutic range 10. Physical deconditioning - Requested for PT OT eval and child welfare social worker to assist with discharge planning Time spent in the patient's overall evaluation,decision-making process, review of diagnostic data, adjustment of management, discussion with other providers, nursing nursing and ancillary staff involved in patient's care documentation, 35 Minutes Capacity Legal Diving Instructor Reflex Medical hold order details:: IF a medical hold is selected below, a suggested order for a MEDICAL HOLD will reflex upon signing the document. Next of kin: [place] law dictates a PRIORITY LIST for identifying legal decision-maker/legal next of kin in the following order (LNOK): 1st: The patient?s legal guardian, if any 2nd: The patient's spouse (if status is questionable, consult Risk Management) 3rd: The patient?s adult child(julienne) (majority, if multiple children) 4th: The patient?s parents 5th: The patient?s adult siblings (majority, if multiple children siblings) Charges/Coding Visit Charges Inpatient E&M: 98105 Subs Hosp L2
[2023-11-07] MEDS: Ipratropium/Albuterol Sulfate 3 ML AMPUL.NEB INHALATION ×2 (15:07→19:02)
[2023-11-08] VITALS (8 sets, daily range): BP systolic 122–129; BP diastolic 51–98; PULSE 70–94; RESP 18; TEMP 36.4–36.5; O2SAT 94–99; BMI 24.1
[2023-11-08] MEDS: Ipratropium/Albuterol Sulfate 3 ML AMPUL.NEB INHALATION ×3 (07:02→16:24)
[2023-11-08 07:41] LABS: Absolute Lymphocyte Count 0.49 X10^3/uL (0.83-4.51); Absolute Neutrophil Count 12.2 X10^3/uL (2.0-7.7); Basophil# 0.06 X10^3/uL; Basophil% 0.4 % (0-1); Eosinophil# 0.03 X10^3/uL; Eosinophils% 0.2 % (0-5); Hematocrit 40.9 % (40-54); Hemoglobin 12.6 g/dL (13.0-16.5); Lymphocyte # 0.49 X10^3/ul (0.83-4.51); Lymphocyte % 3.5 % (19-41); Mean Corp Hgb Conc 30.8 g/dL (32-36); Mean Corpuscular Hgb 31.3 pg (27.0-32.0); Mean Corpuscular Volume 101.7 fL (80-94); Mean Platelet Vol. 10.5 fl (6.2-12.0); Monocyte# 1.14 X10^3/uL; Monocyte% 8.1 % (0-10); NRBC Flagged by Analyzer 0 % (0-5); Neutrophil # 12.15 X10^3/uL (2.7-7.7); Neutrophil % 85.9 % (47-70); POSITIVE DIFFERENTIAL YES; Platelet Count 150 K/mm3 (150-450); RBC Distribution Width CV 14.6 % (11.6-14.6); RBC Distribution Width SD 55.2 fl (35.1-43.9); Red Blood Count 4.02 M/mm3 (4.6-6.2); White Blood Count 14.1 K/mm3 (4.4-11.0)
[2023-11-08 07:48] LABS: Differential Indicated SCAN CRITERIA MET
[2023-11-08 08:05] LABS: Anion Gap 0 (5-15); BUN 50 mg/dL (7-18); BUN/Creat Ratio 47.6 RATIO (10-20); Calcium,Total 9.1 mg/dL (8.5-10.1); Chloride 99 mmol/L (98-107); Creatinine, Serum 1.05 mg/dL (0.70-1.30); EST Glomerular Filtration Rate 71 mL/min (>60); Est Glom Filt Rate - Afr Amer 86 mL/min (>60); Estimated Creatinine Clearance 54.78 ml/min; Glucose 92 mg/dL (74-106); Potassium 4.9 mmol/L (3.5-5.1); Sodium Level 140 mmol/L (136-145)
[2023-11-08 08:06] LABS: International Normalized Ratio 1.8; Prothrombin Time (Protime)PT. 20.8 SECONDS (11.7-14.9)
[2023-11-08] MEDS: Carvedilol 6.25 MG Tablet PO (09:53)
[2023-11-08] MEDS: Lisinopril 5 MG Tablet PO (09:53)
[2023-11-08] MEDS: Furosemide 40 MG Tablet PO (09:53)
[2023-11-08] MEDS: predniSONE 20 MG Tablet 60 MG PO (09:53)
--- NOTE | 2023-11-08 16:01 | DS.PCM_ITS ---
Providers Date of Admission: 11/02/23 Date of Discharge: 11/08/23 Primary Care Physician: Dr. Daniel Chester, Reason For Visit: ACUTE HYPOXIC ON CHRONIC, COPD EXAC. CHF EXAC, PNA Diagnosis Discharge Diagnosis (1) CHF exacerbation: Status: Chronic Code(s): I50.9 - Heart failure, unspecified (2) COPD exacerbation: Status: Chronic Code(s): J44.1 - Chronic obstructive pulmonary disease with (acute) exacerbation (3) Pneumonia: Status: Acute Code(s): J18.9 - Pneumonia, unspecified organism Plan 1. Acute on chronic hypoxic respiratory failure 2/2 moraxella pneumonia 2. Acute on chronic congestive heart failure with preserved ejection fraction 3. COPD with acute exacerbation 4. Paroxysmal A. fib 5. 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 Hypertension 7. Chronic hypoxic respiratory failure 8. Chronic kidney disease stage III Medications at Discharge Home Medications budesonide-formoterol HFA 160 mcg-4.5 mcg/actuation aerosol inhaler 2 puff IH BID 07/17/20 ipratropium 20 mcg-albuterol 100 mcg/actuation mist for inhalation 2 puff inhalation 4X/DAY 07/17/20 warfarin 4 mg tablet 4 mg PO DAILY 07/17/20 carvedilol 6.25 mg tablet 6.25 mg PO BID #120 tabs 08/01/20 lisinopril 5 mg tablet 5 mg PO DAILY #60 tabs 08/01/20 albuterol sulfate 2.5 mg/3 mL (0.083 %) solution for nebulization 2.5 mg inhalation PRN PRN shortness of breath or wheezing 11/02/23 furosemide 40 mg tablet 40 mg PO DAILY 11/02/23 prednisone 20 mg tablet See Taper PO BREAKFAST #32 tabs 11/08/23 Hospital Course Summary of Care Provided Minutes Spent on Discharge: 32 Hospital Course: The patient is an 83 y/o M w/ PMHx: CKD stage II per GFR trending, PAF, COPD with Chronic Hypoxic Respiratory Failure (5L NC), HTN, HLD, Hx TIA, 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 Patient sputum grew Moraxella and he was on Rocephin. Plan was for further antibiotics but patient only took 4 days and subsequently refused, discussed with him and daughter and they wanted to treat it from a naturopathic perspective, discussed risks and benefits not including patient could if he has partially treated pneumonia and they verbalized their understanding, patient did continue to improve with steroids, nebs, and also was on increased dose of Lasix due to additional heart failure exacerbation on top of his pneumonia and COPD exacerbation. Patient slowly improved even without further antibiotics and on day of discharge was able to ambulate on his home O2 and is feeling much better. Discharge instructions as follows: -You will be discharged on a prednisone taper: -60 mg daily x3 days -50mg daily x3 days -40mg daily x3 days -30mg daily x3 days -20mg daily x3 days -10mg daily x3 days -You will need to continue having your INR checked, would recommend checking in 2 to 3 days and your prescribing physician can make any further recommendations as applicable -Please continue your inhalers and your Lasix -Weigh yourself every day. A sudden weight gain can mean you are retaining fluid. Weigh yourself at the same time of day and in the same kind of clothes. Ideally, weigh yourself first thing in the morning after you empty your bladder, but before you eat breakfast. -Please call your physician if your weight goes up by more than 2 pounds in 1 day or 5 pounds in 1 week. This can be a sign that you are retaining more fluid than you should be. Clues to weight gain include checking your ankles for swelling, or noticing you are short of breath when you lie down -Please limit your sodium intake to less than 3 g/day. Here are tips: Limit canned, dried, packaged, and fast foods. Don't add salt to your food at the table. Season foods with herbs instead of salt when you cook. When you eat out, ask that the psychiatric registered nurse not add any salt to your dish. Don't eat fried or greasy foods. Be careful of bottled beverages. They can contain a lot of salt -Call 911 right away if you have: -Severe shortness of breath, such that you can't catch your breath even while resting -Severe chest pain that does not resolve with rest or nitroglycerin -[place], foamy mucus with cough and shortness of breath -An ongoing rapid or irregular heartbeat -Passing out or fainting -Stroke symptoms such as sudden numbness or weakness on one side of your face, arm, or leg or sudden confusion, trouble speaking or vision changes -Please call your primary care provider's office upon discharge to schedule a hospital follow up within 1 week. -For any concerning signs or symptoms please call 911 or proceed to the nearest emergency department Physical Exam Narrative General: Alert, no apparent distress HEENT: Atraumatic, normocephalic Eyes: Anicteric, normal conjunctiva, extraocular movements grossly intact Neck: Supple Respiratory: Improved respiratory effort Cardiovascular: Regular rate GI: Soft, nontender, nondistended Extremities: No edema Musculoskeletal: Moving all extremities Neuro: No overt focal neurological deficits Skin: No rashes appreciated Psych: Cooperative Weight / BMI Weight Weight: 78.5 kg Body Mass Index (BMI) 24.1 ABG / Lab / Microbiology Data 11/08/23 07:05 11/08/23 07:05 Laboratory: Laboratory Results - last 24 hr 11/08/23 07:05: WBC 14.1 H, RBC 4.02 L, Hgb 12.6 L, Hct 40.9, MCV 101.7 H, MCH 31.3, MCHC 30.8 L, RDW Std Deviation 55.2 H, RDW Coeff of Tal 14.6, Plt Count 150, MPV 10.5, Immature Gran % (Auto) 1.900 H, Neut % (Auto) 85.9 H, Lymph % (Auto) 3.5 L, [place] % (Auto) 8.1, Eos % (Auto) 0.2, Baso % (Auto) 0.4, Absolute Neuts (auto) 12.2 H, Absolute Lymphs (auto) 0.49 L, Nucleated RBC % 0, PT 20.8 H , INR 1.8, Sodium 140, Potassium 4.9, Chloride 99, Carbon Dioxide 41.0 H, Anion Gap 0 L, BUN 50 H, Creatinine 1.05, Estim Creat Clear Calc 54.78, Est GFR (MDRD) Af Amer 86, Est GFR (MDRD) Non-Af 71, BUN/Creatinine Ratio 47.6 H, Glucose 92, Calcium 9.1 Microbiology: Microbiology 11/02/23 20:00 Sputum, Expectorated/Coughed Gram Stain - Final 11/02/23 20:00 Sputum, Expectorated/Coughed Respiratory Culture - Final Moraxella Catarrhalis 11/02/23 16:17 Sputum, Expectorated/Coughed Gram Stain - Final 11/02/23 16:17 Sputum, Expectorated/Coughed Respiratory Culture - Final 11/03/23 05:45 Urine, Clean Catch Legionella Antigen - Final 11/03/23 05:45 Urine, Clean Catch Streptococcus pneumoniae Antigen (M - Final 11/02/23 16:09 Mucosa - Nose SARS-CoV-2, Influenza & RSV (PCR) - Final D/C Instructions Discharge Diet: - (-DASH diet, 3000 mg sodium restriction, 2 L fluid restriction) Meaningful Use Info Meaningful Use Diagnoses (Choose all that apply): CHF CHF KAREN/ARB ordered at discharge?: Yes Documented LVEF (%): 50 Discharge Plan Admission Admit Date/Time: 11/02/23 18:16 Primary Reason for Your Visit: Dyspnea, cough, fatigue Attending Provider: Lily Harden Primary Care Provider: Daniel Chester Consulting Providers: Janis Centeno; Alfonso Kang Instructions Patient Instructions: ED Dyspnea Additional Instructions / Restrictions: DISCHARGE INSTRUCTIONS PLEASE READ *Please take this with you to your next doctors appointment* -You will be discharged on a prednisone taper: -60 mg daily x3 days -50mg daily x3 days -40mg daily x3 days -30mg daily x3 days -20mg daily x3 days -10mg daily x3 days -You will need to continue having your INR checked, would recommend checking in 2 to 3 days and your prescribing physician can make any further recommendations as applicable -Please continue your inhalers and your Lasix -Weigh yourself every day. A sudden weight gain can mean you are retaining fluid. Weigh yourself at the same time of day and in the same kind of clothes. Ideally, weigh yourself first thing in the morning after you empty your bladder, but before you eat breakfast. -Please call your physician if your weight goes up by more than 2 pounds in 1 day or 5 pounds in 1 week. This can be a sign that you are retaining more fluid than you should be. Clues to weight gain include checking your ankles for swelling, or noticing you are short of breath when you lie down -Please limit your sodium intake to less than 3 g/day. Here are tips: Limit canned, dried, packaged, and fast foods. Don't add salt to your food at the table. Season foods with herbs instead of salt when you cook. When you eat out, ask that the psychiatric registered nurse not add any salt to your dish. Don't eat fried or greasy foods. Be careful of bottled beverages. They can contain a lot of salt -Call 911 right away if you have: -Severe shortness of breath, such that you can't catch your breath even while resting -Severe chest pain that does not resolve with rest or nitroglycerin -[place], foamy mucus with cough and shortness of breath -An ongoing rapid or irregular heartbeat -Passing out or fainting -Stroke symptoms such as sudden numbness or weakness on one side of your face, arm, or leg or sudden confusion, trouble speaking or vision changes -Please call your primary care provider's office upon discharge to schedule a hospital follow up within 1 week. -For any concerning signs or symptoms please call 911 or proceed to the nearest emergency department Discharge Orders/Prescriptions Prescriptions: New prednisone 20 mg Tablet See Taper PO BREAKFAST Qty: 32 0RF Taper: Prednisone Taper 60 mg WITH BREAKFAST for 3 Days and 0 Hour 50 mg WITH BREAKFAST for 3 Days and 0 Hour 40 mg WITH BREAKFAST for 3 Days and 0 Hour 30 mg WITH BREAKFAST for 3 Days and 0 Hour 20 mg WITH BREAKFAST for 3 Days and 0 Hour 10 mg WITH BREAKFAST for 3 Days and 0 Hour Continued warfarin 4 MG tablet 4 mg PO DAILY budesonide-formoterol 6 GM HFA aerosol inhaler 2 puff IH BID ipratropium-albuterol 1 PUFF inhaler 2 puff inhalation 4X/DAY carvedilol 6.25 MG tablet 6.25 mg PO BID Qty: 120 0RF lisinopril 5 MG tablet 5 mg PO DAILY Qty: 60 0RF albuterol sulfate 2.5 mg /3 mL (0.083 %) solution for nebulization 2.5 mg inhalation PRN PRN (Reason: shortness of breath or wheezing) Patient Comments: USE 1 VIAL IN NEBULIZER EVERY 4 HOURS NEEDED FOR WHEEZING OR SHORTNESS OF BREATH. USE OVER 5-15 MINUTES furosemide 40 MG tablet 40 mg PO DAILY Referrals / Follow Up: Daniel Chester DO [Primary Care Provider] - 11/15/23 10:00 am (Nurse Tana will be the one he is seeing. If uncomfortable with an RN follow-up please contact the office.) Disposition Disposition (needs filled in before D/C Order can be placed): Home, Self Care Charges/Coding Visit Charges Inpatient E&M: 68018 Disch Hosp >30min
--- NOTE | 2023-11-08 16:14 | CASEMGMT ---
Patient has order for discharge. Patient maintaining on home oxygen of 5lpm. RN CM in to discuss needs at discharge, daughter at bedside. Patient discharging with palliative care. Daughter states [facility] to deliver bed on Monday. Patient and daughter denied further needs at discharge. Patient and daughter had no further questions or concerns.
--- NOTE | 2023-11-16 11:07 | CCN.REFER ---
PATIENT'S DTR AGREEABLE TO CCN AND PL. CCN TO SEE WEEKLY. PCP MADE AWARE.
== END 2023-11-08 16:45 | disposition home or self-care (01) | DRG 177 ==
LOC: ED 18:25 → PCU 18:36
PROVIDERS: Internal Medicine; Admitting Provider Family Medicine; Emergency Provider Student in an Organized Health Care Education/Training Program; PCP Student in an Organized Health Care Education/Training Program; Visit Provider Internal Medicine
DX: J15.69 Pneumonia due to other Gram-negative bacteria (principal); J96.21 Acute and chronic respiratory failure with hypoxia; I50.33 Acute on chronic diastolic (congestive) heart failure; J44.0 Chronic obstructive pulmonary disease with (acute) lower respiratory infection; J44.1 Chronic obstructive pulmonary disease with (acute) exacerbation; R04.2 Hemoptysis; N18.30 Chronic kidney disease, stage 3 unspecified; I48.0 Paroxysmal atrial fibrillation; D53.9 Nutritional anemia, unspecified; E78.5 Hyperlipidemia, unspecified; K52.9 Noninfective gastroenteritis and colitis, unspecified; Z99.81 Dependence on supplemental oxygen; Z79.01 Long term (current) use of anticoagulants; Z79.899 Other long term (current) drug therapy; Z87.891 Personal history of nicotine dependence; Z95.0 Presence of cardiac pacemaker; Z86.73 Personal history of transient ischemic attack (TIA), and cerebral infarction without residual deficits
CPT/HCPCS: 36415; 71045; 80048; 80053; 80061; 83735; 83880; 84100; 84145; 84443; 84484; 85025; 85610; 87070; 87077; 87205; 87449; 87631; 93005; 93306; 94640; 94668; 97162; 97166; 99285; J7050; A4216; J1940